=== PATIENT | male | born 1940 | race Caucasian/White ===

== ENCOUNTER → 2019-03-30 | Outpatient (CLI) | payer OTHER | LOC: ULTRA 14:02 | DX: N61.1 Abscess of the breast and nipple (principal) ==

== ENCOUNTER 2019-08-11 18:36 | Inpatient (IN) | payer OTHER ==
[~2019-08-11] VITALS: Ht 180.3 cm; Wt 135.3 kg
--- NOTE | ~2019-08-11 | EMS ---
[address] [address] EMS Patient Care Report Name: NATALY ROBLES Room #: 201-P ADM IN M.R.#: [id number] Admission: 08/11/19 Attend Phys: Ramez Yepez Discharge: Date of : 44 Report #: [id number] THIS REPORT FOR: //name// Report Transmitted: 08/11/2019 21:58 EMS Care Summary [place], [place]/[facility] Incident [id number] @ 08/11/2019 17:54 Incident Location [address] [place] [address] 402 Patient NATALY ROBLES Male, 79 Years 1940 Patient Address [address] [place], [place] [id number] Patient History Congestive Heart Failure (CHF),Diabetes,Hypertension (HTN),Hyperlipidemia,Anxiety,Atrial Fibrillation,Neuropathy,Peripheral Vascular Disease,Hypothyroidism,Hypokalemia,Cellulitis,Insomnia, Patient Allergies No known allergies, Patient Medications Other, Nystatin, Xarelto, Melatonin, Bumetanide, Hydrocodone, Potassium, Lyrica, Coreg, Lipitor, Metformin, Senna, Levothyroxine, Baclofen, Doxycycline, Lisinopril, Disposition Transported [place] Dispatch Reason Sick Person Transported To [facility] Narrative THE PATIENT WAS FOUND SITTING IN A WHEELCHAIR AND BEING ROLLED OUT OF THE BACK DOOR OF THE FACILITY BY STAFF. STAFF STATE THEY FOUND THE PATIENT VERY TIRED [address] [address] EMS Patient Care Report Name: NATALY ROBLES Room #: 201-P [facility] IN .R.#: [id number] Admission: 08/11/19 Attend Phys: Ramez Yang [place] Discharge: Date of : 44 Report #: [id number] AND WEAK ABOUT 30-60 MINUTES AGO AND ARE SENDING HIM OUT FOR EVALUATION. THE PATIENT IS ALERT AND ORIENTED x4 AND COMPLAINS OF LEFT KNEE PAIN FROM A FALL SEVERAL DAYS AGO AND DIZZINESS. THE PATIENT DENIES ANY PAIN, SHORTNESS OF BREATH OR OTHER COMPLAINTS. THE PATIENT WAS FOUND TO BE HYPOTENSIVE AND BRADYCARDIC DURING THE COLLECTION OF VITAL SIGNS. THE MONITOR WAS APPLIED BUT NO RHYTHM COULD BE DISCERNED. IV ACCESS WAS ESTABLISHED AND NS ADMINISTERED. ATROPINE WAS ADMINISTERED. THE PATIENT WAS FOUND TO HAVE A ROOM AIR OXYGEN SATURATION OF 90% WHICH IMPROVED WITH OXYGEN BY CANNULA. NO OTHER CHANGES IN THE PATIENT'S CONDITION DURING TRANSPORT. THE PATIENT WAS MOVED TO BED 6 AT THE [facility] ER AND LEFT WITH THE SIDE RAILS UP AND LOCKED. CARE WAS TRANSFERRED TO THE ER NURSING STAFF. Initial Vitals @18:19P: 34, @18:28P: 26,R: 16,BP: 82/37,Pain: 0/10,GCS: 15,SpO2: 96,Revised Trauma: 11, @18:08P: 40,R: 16,BP: 88/58,Pain: 0/10,GCS: 15,Glucose: 158,CO: 0,SpO2: 90,Revised Trauma: 11, Assessments @18:04MENTAL:Person Oriented,Time Oriented,Place Oriented,Event Oriented,SKIN:Pale,HEENT:Head/Face: No Abnormalities,Eyes: No Abnormalities,Neck/Airway: No Abnormalities,LUNG SOUNDS:General: No Abnormalities,Left Upper: No Abnormalities,Right Upper: No Abnormalities,Left Lower: No Abnormalities,Right Lower: No Abnormalities,ABDOMEN:General: No Abnormalities,Left Upper: No Abnormalities,Right Upper: No Abnormalities,Left Lower: No Abnormalities,Right Lower: No Abnormalities,PELVIS//GI:No Abnormalities,EXTREMITIES:Left Leg: Other,Left Arm: No Abnormalities,Right Arm: No Abnormalities,Right Leg: No Abnormalities,PULSE:Carotid: 1+ Thready,NEURO:No Abnormalities, Impression Dizziness Procedures @18:1912-Lead ECGResponse: Unchanged@18:04ALS AssessmentResponse: Unchanged@18:10Oxygen FlowRate: 3 Device: Nasal Cannula (NC) Response: Improved@18:083-Lead ECGResponse: Unchanged@18:13Saline Lock 8cc (20 ga) Site: Forearm-LeftResponse: UnchangedSucceeded@18:15Normal Saline (.9% NaCl) 500cc () Site: Forearm-LeftResponse: UnchangedSucceeded@18:21Atropine - 1 Milligrams (mg) - Intravenous (IV)Response: Unchanged Timeline 17:52,Call Received 17:52,Dispatch Notified 17:54,Dispatched 17:54,En Route [address] [address] EMS Patient Care Report Name: NATALY ROBLES Room #: 201-P ADM IN M.R.#: [id number] Admission: 08/11/19 Attend Phys: Ramez Yepez Discharge: Date of : 44 Report #: [id number] 17:59,On Scene 18:04,At Patient 18:04,ALS Assessment,Response: Unchanged 18:08,3-Lead ECG,Response: Unchanged 18:08,BP: 88/58 M,PULSE: 40,RR: 16 R,SPO2: 90 Ox,ETCO2: ,B,PAIN: 0,GCS: 15, 18:10,Oxygen FlowRate: 3 Device: Nasal Cannula (NC) Response: Improved 18:13,Saline Lock 8cc 20 ga Site: Forearm-Left,Response: UnchangedSucceeded, 18:15,Normal Saline (.9% NaCl) 500cc Site: Forearm-Left,Response: UnchangedSucceeded, 18:19,12-Lead ECG,Response: Unchanged 18:19,BP: / M,PULSE: 34,RR: R,SPO2: Ox,ETCO2: ,BG: ,PAIN: ,GCS: , 18:21,Atropine - 1 Milligrams (mg) - Intravenous (IV),Response: Unchanged 18:25,Depart Scene 18:28,BP: 82/37 M,PULSE: 26,RR: 16 R,SPO2: 96 Ox,ETCO2: ,BG: ,PAIN: 0,GCS: 15, 18:31,At Destination 19:07,Call Closed Disclaimer v1.1 Copyright 2020 [employer] This EMS Care Summary contains data elements from the applicable legal record (which may be displayed differently). It is designed to provide pertinent information for the following purposes: continuity of care, clinical quality, and state data reporting. The complete legal record is available to ED staff and administrators of the receiving hospital in [employer]'s Patient Tracker. All data is provided "as is."
--- NOTE | ~2019-08-11 | HC ---
[facility] [place] [address] CONSULTATION Name: NATALY ROBLES Room #: 201-P [facility] IN M.R.#: [id number] Admission: 08/11/19 Attend Phys: Ramez Yepez Discharge: Date of : 44 Report #: [id number] THIS REPORT FOR: cc: [facility] - Mary family physician/PCP KINA - Mary family physician/PCP Ken Giron MD ~ CC: [facility] physician/PCP Ramez Yepez ORTHOPEDIC CONSULTATION CHIEF COMPLAINT: Left knee pain. HISTORY OF PRESENT ILLNESS: The patient is a pleasant 79-year-old male was seen today for evaluation of his left knee pain. The patient reports that he fell landing on his knee. He resides at [facility] and has multiple underlying medical comorbidities. PAST MEDICAL HISTORY: Significant for type 1 diabetes, cellulitis, hyperkalemia, peripheral neuropathy, insomnia, hypertension, congestive heart failure, peripheral vascular disease, pneumonia, falls, hyperlipidemia, cardiac arrhythmias, vitamin D deficiency, constipation, and hypothyroidism. PAST SURGICAL HISTORY: Unknown. SOCIAL HISTORY: Resident at [facility]. He is a current smoker of cigars. Alcohol, reports occasional alcohol use. ALLERGIES: No known drug allergies. MEDICATIONS: Please see current MAR. LABORATORY DATA: Reviewed. PHYSICAL EXAMINATION: GENERAL: The patient is alert and able to answer questions to the best of his ability. EXTREMITIES: Examination of the left knee reveals an anterior abrasion. He has a 2+ effusion and pain patches placed along the medial aspect of his knee with range of motions from 20-45 degrees and is otherwise pain limited. His knee is stable to varus and valgus stresses at 30 degrees. No obvious Laura was noted. Patellofemoral crepitus is present. The leg and calf down to the foot is wrapped in a compressive wrapping for his wounds and venous stasis. He is unable to wiggle the toes, but reports diminished sensation. Radiographs reveal advanced tricompartmental knee arthrosis with an effusion. [address] [address] CONSULTATION Name: NATALY ROBLES Room #: 201-P [facility] IN M.R.#: [id number] Admission: 08/11/19 Attend Phys: Ramez Yepez Discharge: Date of : 44 Report #: [id number] IMPRESSION: 1. Left knee pain, status post fall, advanced osteoarthritis. 2. Limited mobility. 3. Multiple medical comorbidities including acute kidney injury, type 1 diabetes and encephalopathy. PLAN: We reviewed treatment options with the patient. He reports that he has had an injection in the past and this provided no significant improvement in his symptoms. We have discussed that he has not a good surgical candidate for total knee arthroplasty especially in this current hospitalization and setting. Anti-inflammatories need to be avoided due to his kidney injury. We discussed ice and/or physical therapy could be considered, he may continue with topical pain patches and oral pain medicine. Unfortunately we have limited options otherwise to help him. He reports he ambulates minimally with a walker and primarily uses a wheelchair. At some point in the future if he decides or if he is interested in an injection, cortisone injection could be considered or possibly viscosupplementation type injections through the office. By: 1222 1548 Ken Giron MD /nt
[2019-08-11 18:37] VITALS: BP 103/51
[2019-08-11 18:59] LABS: ABSOLUTE NEUTROPHILS 7.2 thou/uL (1.4-8.2); BASOPHILS 0.8 % (0.0-2.0); HEMATOCRIT 35.1 % (42.0-52.0); HEMOGLOBIN 11.9 gm/dL (14.0-18.0); LYMPHOCYTES 13.7 % (24.0-44.0); MCH 30.6 pg (26.0-34.0); MCHC 33.8 g/dL (28.0-37.0); MCV 90.7 fL (80.0-100.0); MONOCYTES 10.5 % (1.0-8.0); PLATELET COUNT 146 thou/uL (150-400); RBC 3.87 mil/uL (4.50-6.00); RDW 16.4 % (10.5-14.5); WBC 9.8 thou/uL (4.0-11.0)
[2019-08-11] MEDS ORDERED: BUMEX2 MG PO (19:02)
[2019-08-11] MEDS ORDERED: CARVEDILOL25 MG PO (19:02)
[2019-08-11] MEDS ORDERED: BACLOFEN 10MG T10 MG PO (19:02)
[2019-08-11] MEDS ORDERED: NORCO 5-325 TA1 EAC1 PO (19:03)
[2019-08-11] MEDS ORDERED: LEVOXYL112 MCG PO (19:03)
[2019-08-11] MEDS ORDERED: LIPITOR40 MG PO (19:03)
[2019-08-11] MEDS ORDERED: ZESTRIL40 MG PO (19:04)
[2019-08-11] MEDS ORDERED: LYRICA 75 MG CA75 MG PO (19:04)
[2019-08-11] MEDS ORDERED: MIRALAX17 G1 PO (19:05)
[2019-08-11] MEDS ORDERED: MULTIVITAMINS1 EAC7 PO (19:05)
[2019-08-11] MEDS ORDERED: MELATONIN3 M1 PO (19:05)
[2019-08-11] MEDS ORDERED: METFORMIN HCL500 MG PO (19:05)
[2019-08-11] MEDS ORDERED: SENNA LAXATIVE8.6 MG PO (19:06)
[2019-08-11] MEDS ORDERED: NORVASC5 M1 PO (19:06)
[2019-08-11] MEDS ORDERED: POTASSIUM20 PO (19:06)
[2019-08-11] MEDS ORDERED: METOLAZONE 2.52.5 MG PO (19:07)
[2019-08-11] MEDS ORDERED: XARELTO20 MG PO (19:07)
[2019-08-11 19:12] LABS: APTT 54.4 Seconds (24.5-32.8); INR 1.9; PROTIME 19.8 Seconds (9.3-11.4)
[2019-08-11 19:35] LABS: ANION GAP 11 mmol/L (7-16); BUN 73 mg/dL (7-18); CALCIUM 8.8 mg/dL (8.5-10.1); CHLORIDE 99 mmol/L (98-107); CO2 29 mmol/L (21-32); CREATININE 2.1 mg/dL (0.7-1.3); GLUCOSE 136 mg/dL (74-106); POTASSIUM 3.4 mmol/L (3.5-5.1); SODIUM 139 mmol/L (136-145)
[2019-08-11 19:46] LABS: MAGNESIUM 1.6 mg/dL (1.8-2.4); TROPONIN-I <0.06 ng/mL (<0.06)
[2019-08-11 20:56] LABS: URINE BILIRUBIN NEGATIVE (Negative); URINE BLOOD NEGATIVE (Negative); URINE CLARITY CLEAR; URINE COLOR YELLOW; URINE GLUCOSE-RANDOM* NEGATIVE (Negative); URINE KETONES NEGATIVE (Negative); URINE LEUKOCYTES-REFLEX NEGATIVE (Negative); URINE NITRITE-REFLEX NEGATIVE (Negative); URINE PROTEIN (DIPSTICK) NEGATIVE (Negative); URINE UROBILINOGEN 0.2 E.U./dl (0.2-1.0)
[2019-08-11 21:14] VITALS: BP 90/32
[2019-08-11 22:00] VITALS: BP 117/56
[2019-08-12] VITALS (8 sets, daily range): BP systolic 95–142; BP diastolic 53–88
--- NOTE | 2019-08-12 02:05 | NUR ---
PT ARRIVED AT THE UNIT AROUND 2134, PT IS AWAKE, A&O, MAKES NEEDS KNOWN, AFIB/BBB ON THE MONITOR, HR STABLE AT 72, ADMISSION ASSESSMENT CHARTED, VSS, C/O PAIN IN THE BLE, TYL GIVEN, PT SLEEPING AT THIS TIME, NO DISTRESS NOTED, WILL CONTINUE TO MONITOR
[2019-08-12] MEDS ORDERED: NYSTATIN 100,0015 G1 TOP (03:30)
[2019-08-12 05:18] LABS: HEMATOCRIT 31.6 % (42.0-52.0); HEMOGLOBIN 10.8 gm/dL (14.0-18.0); MCH 30.9 pg (26.0-34.0); MCHC 34.1 g/dL (28.0-37.0); MCV 90.7 fL (80.0-100.0); RBC 3.48 mil/uL (4.50-6.00); RDW 16.4 % (10.5-14.5)
[2019-08-12 05:34] LABS: ANION GAP 7 mmol/L (7-16); BUN 62 mg/dL (7-18); CALCIUM 8.3 mg/dL (8.5-10.1); CHLORIDE 103 mmol/L (98-107); CO2 31 mmol/L (21-32); CREATININE 1.5 mg/dL (0.7-1.3); GLUCOSE 127 mg/dL (74-106); MAGNESIUM 2.1 mg/dL (1.8-2.4); SODIUM 141 mmol/L (136-145); TROPONIN-I <0.06 ng/mL (<0.06)
[2019-08-12 05:36] LABS: POTASSIUM 2.8 mmol/L (3.5-5.1)
--- NOTE | 2019-08-12 07:47 | NUR ---
PT REMAINED STABLE THROUGH THE NIGHT, EPISODES OF BRADYCARDIA, AFIB ON THE MONITOR WITH BBB, PASSED ON REPORT
--- NOTE | 2019-08-12 08:32 | EKG ---
[facility] [place] [address] ELECTROCARDIOGRAM REPORT Name: NATALY ROBLES Room #: 201-P ADM IN M.R.#: [id number] Admission: 08/11/19 Attend Phys: Ramez Yepez Discharge: Date of : 44 Report #: [id number] THIS REPORT FOR: cc: KINA - No family physician/PCP KINA - No family physician/PCP Pete Ellsworth MD [facility] THIS REPORT FOR: //name// [facility] ED Test Date: 2019-08-11 Test Time: 18:44:59 Pat Name: NATALY ROBLES Department: Room: [facility] Gender: M [place]: [place] : 1940 Requested By: Arjun Stewart Order Number: [id number] MD: Pete Ellsworth Measurements Intervals [place] Rate: 85 P: TX: QRS: -36 QRSD: 155 T: -42 QT: 426 QTc: 507 Interpretive Statements Atrial fibrillation Ventricular premature complex Right bundle branch block Inferior infarct, old No previous ECG available for comparison Electronically Signed On 08-12-2019 8:30:36 CDT by Pete Ellsworth [email or web address] <ELECTRONICALLY SIGNED> By: Pete Ellsworth MD, FACC 08/12/19 0830 1844 1844 Pete Ellsworth MD, [facility] /EPI
--- NOTE | 2019-08-12 11:02 | NUR ---
WOUND CONSULT; BILATERAL LOWER EXTREMITY WITH ACUTE CELLULITIS PER DR PRESSLEY. WARM TO TOUCH, ERYTHEMIA. THE LEFT IS MORE PAINFUL DUE TO KNEE ISSUES. DR MONTALVO IS ON THE CASE NOW SO I WILL SIGN OFF. RECOMMENDATIONS; 1-XEROFORM,ABD, KERLIX, JOE WRAP BILATERALLY DISCUSSED WITH RN
--- NOTE | 2019-08-12 11:31 | NUR ---
Received awake on bed. Due medications given as prescribed, able to swallow meds w/o difficulty. On O2 at 2lpm via nasal cannula, saturating at 92%. A+O3-4. On heart monitoring- strips attached to chart; Afib BBB, bradycardic; no complaints of chest pain, heaviness or crushing sensation. On carb controlled diet- modified to mechanically alterred chopped since pt does not have dentures- tolerating well; no nausea, no vomiting and no abdominal pain noted. Onblood sugar monitoring- taken and recorded; sliding scale insulin ordered. Continent of bowel and bladder- assisted in using urinal- output measured and recorded accordingly. With bilateral lower extremity cellulitis- wound care consult made; a/w wounds. Pt seen by Wound nurse Spencer- photo has been taken by wound nurse; dressing changed. With NS at 100cc/hr, infusing well at L FA; ongoing IV KCL correction 2nd bag ongoing as well. With SL at R AC- C/D/I. Falls bundle in place. With consult to Dr Hurley- called thru answering service, Dr Zuleta called back and information relayed to him. Pt seen by Dr Syed- pt for Echo and EKG; Echo done at bedside today. With consult to Dr Goldman, Dr Ansari and Dr Reece-physicians informed thru answering service. Complained of pain, no PRN pain meds prescribed- Dr Townsend informed; prescription obtained- medication given as prescribed. Assisted in ADLs. Falls bundle in place. Pt's sister Amarilis updated re: his status, permission obtained. To continue monitoring patient.
--- NOTE | 2019-08-12 12:10 | 2DMMODE ---
[facility] [address] [email or web address] [address] 2 D/M-MODE ECHOCARDIOGRAM Name: NATALY ROBLES Room #: 201-P ADM IN M.R.#: [id number] Admission: 08/11/19 Attend Phys: Ramez Yepez Discharge: Date of : 44 Report #: [id number] THIS REPORT FOR: cc: FAM - No family physician/PCP FAM - No family physician/PCP Pete Ellsworth MD [facility] ~ APPROVED REPORT Study performed: 08/12/2019 10:49:47 EXAM: Comprehensive 2D, Doppler, and color-flow Echocardiogram Patient Location: Bedside Room #: 201 Status: routine BSA: 2.43 HR: 57 bpm BP: 116/53 mmHg Rhythm: Atrial Fibrillation Other Information Study Quality: Adequate/poorly tolerated exam; not all measurements taken. Technically limited study due to morbid obesity, no mobility, intolerance of exam. Indications Atrial Fibrillation Hx: CHF, Afib, DM, HTN, HLP, DM. 2D Dimensions IVSd: 12.46 (7-11mm) LVOT Diam: 22.22 (18-24mm) LVDd: 47.00 mm PWd: 10.00 (7-11mm) Ascending Ao: 43.00 (22-36mm) LVDs: 36.53 (25-40mm) Aortic Root: 39.00 mm Aortic Valve AoV Peak Lele.: 1.97 m/s AO Peak Gr.: 15.45 mmHg LVOT Max P.97 mmHg AO Mean Gr.: 9.26 mmHg AO V2 Mean: 1.46 m/s LVOT Max V: 0.86 m/s AO V2 VTI: 39.71 cm CONCHIS Vmax: 1.69 cm2 [facility] [address] [place] [address] 2 D/M-MODE ECHOCARDIOGRAM Name: TRAVISNATALY Room #: 201-P [facility] IN [facility]#: [id number] Admission: 08/11/19 Attend Phys: Ramez Yang Mar Discharge: Date of : 44 Report #: [id number] Mitral Valve MV Decel. Time: 249.42 ms MV E Max Lele.: 1.32 m/s Pulmonary Valve PV Peak Lele.: 0.82 m/s PV Peak Gr.: 2.68 mmHg Tricuspid Valve TR Peak Lele.: 2.17 m/s RAP Estimate: 10.00 mmHg TR Peak Gr.: 19.00 mmHg PA Pressure: 29.00 mmHg Left Ventricle The left ventricle is normal size. There is normal LV segmental wall motion. Mild septal hypertrophy is present. Left ventricular systolic function is normal. LVEF is 55%. This study is not technically sufficient to allow evaluation of the LV diastolic function due to atrial fibrillation. Right Ventricle Right ventricle is not well visualized. The right ventricular systolic function is normal. Atria Left atrium is dilated. Right atrium is not well visualized. Aortic Valve Aortic valve is calcified, mildly stenotic. Trace aortic regurgitation. Calculated aortic valve area is 1.9 cm2 with maximum pressure gradient of 12 mmHg and mean pressure gradient of 6 mmHg. Mitral Valve Mild mitral annular calcification. There is no mitral valve regurgitation noted. No evidence of mitral valve stenosis. Tricuspid Valve The tricuspid valve is normal in structure. Mild tricuspid regurgitation. Estimated PAP is 30mmHg. Pulmonic Valve Pulmonic valve is not well visualized. Trace pulmonic regurgitation. Great Vessels Aortic root is dilated 3.9. 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 IVC [facility] [address] [place] [address] 2 D/M-MODE ECHOCARDIOGRAM Name: NATALY ROBLES Room #: 201-P ADM IN M.R.#: [id number] Admission: 08/11/19 Attend Phys: Ramez Freeman Discharge: Date of : 44 Report #: [id number] is dilated and collapses <50% with inspiration. Pericardium There is no pericardial effusion. <Conclusion> Left ventricular systolic function is normal. There is normal LV segmental wall motion. LVEF is 55%. Left atrium is dilated. Aortic valve is calcified, very mildly stenotic, mildly insufficient Calculated aortic valve area is 1.9 cm2 with maximum pressure gradient of 12 mmHg and mean pressure gradient of 6 mmHg. Mild mitral annular calcification. No mitral valve regurgitation noted. Mild tricuspid regurgitation. Estimated pulmonary artery pressure of 30mmHg. 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 There is no pericardial effusion. <ELECTRONICALLY SIGNED> By: Pete Ellsworth MD, FACC 08/12/191207 07 07 Pete Ellsworth MD, FAC /INF
[2019-08-12 14:26] LABS: CREATININE 1.3 mg/dL (0.7-1.3); MAGNESIUM 1.7 mg/dL (1.8-2.4); POTASSIUM 3.2 mmol/L (3.5-5.1)
--- NOTE | 2019-08-12 16:42 | NUR ---
Patient admits from [facility] with AMS and cellulitis. Attempted to call patient in room but not avail. Sp with sister who reports she is main contact for patient. She reports plan to return to [facility] once stable. Dtr reports wound on bottocks may need cushion for seating. Sp with RN gave cell number to RN so can have communication through phone. cell [phone]
[2019-08-13 00:07] LABS: GLYCOHEMOGLOBIN (HGB A1C) 7.3 % (4.8-5.6)
[2019-08-13 03:37] VITALS: BP 118/60
--- NOTE | 2019-08-13 05:15 | NUR ---
ASSUMED PT CARE AT 1900, PT IS MORE AWAKE, A&OX3, PLEASANT, MAKES NEEDS KNOWN, AFIB/BBB ON THE MONITOR, C/O PAIN ON BLE, MEDICATIONS GIVEN PRN ORDERED WITH PARTIAL RELIEF, REFUSED POSITION CHANGE DUE TO PAIN, DENIES CHEST PAIN OR SOB,RESTING, NO DISTRESS NOTED, WILL CONTINUE TO MONITOR
[2019-08-13 06:26] LABS: HEMATOCRIT 31.5 % (42.0-52.0); HEMOGLOBIN 10.8 gm/dL (14.0-18.0); MCH 30.8 pg (26.0-34.0); MCHC 34.1 g/dL (28.0-37.0); MCV 90.1 fL (80.0-100.0); RBC 3.5 mil/uL (4.50-6.00); WBC 8.5 thou/uL (4.0-11.0)
[2019-08-13 06:34] LABS: CALCIUM 8.4 mg/dL (8.5-10.1); MAGNESIUM 1.7 mg/dL (1.8-2.4)
[2019-08-13 08:00] VITALS: BP 180/86
--- NOTE | 2019-08-13 09:14 | EKG ---
[facility] [place] [address] ELECTROCARDIOGRAM REPORT Name: NATALY ROBLES Room #: 201-P ADM IN M.R.#: [id number] Admission: 08/11/19 Attend Phys: Andrea Townsend MD Discharge: Date of : 44 Report #: [id number] THIS REPORT FOR: cc: KINA - No family physician/PCP KINA - No family physician/PCP Pete Ellsworth MD [facility] THIS REPORT FOR: //name// [facility] Test Date: 2019-08-13 Test Time: 07:04:08 Pat Name: NATALY ROBLES Department: Room: 201 P Gender: M Touch Up Painter Hand: Bolivar MONAE : 1940 Requested By: Pete Ellsworth Order Number: [id number] MD: Pete Ellsworth Measurements Intervals [place] Rate: 81 P: ME: QRS: -36 QRSD: 150 T: -29 QT: 436 QTc: 506 Interpretive Statements Atrial fibrillation Right bundle branch block Inferior infarct, old Compared to ECG 08/11/2019 18:44:59 No significant change was found Electronically Signed On 08-13-2019 9:12:51 CDT by Pete Ellsworth [email or web address] <ELECTRONICALLY SIGNED> By: Pete Ellsworth MD, [facility] 08/13/19 0912 0704 0704 Pete Ellsworth MD, [facility] /EPI
--- NOTE | 2019-08-13 10:28 | NUR ---
FAXED CLINICAL UPDATE TO [facility] SPOKE WITH CHRIS IN ADM SHE RECEIVED UPDATE AND STATED THAT PT WILL NEED COVID TEST PRIOR TO RETURNING TO FACILITY.
--- NOTE | 2019-08-13 10:29 | HC ---
[facility] [place] [address] CONSULTATION Name: NATALY ROBLES Room #: 201-P [facility] IN M.R.#: [id number] Admission: 08/11/19 Attend Phys: Andrea Townsend MD Discharge: Date of : 42 Report #: [id number] THIS REPORT FOR: cc: KINA Hernandez family physician/PCP KINA Hernandez family physician/PCP Yvette Grant MD ~ CC: [facility] physician/PCP Ramez Yepez DATE OF SERVICE: 08/12/2019 ENDOCRINE CONSULTATION NOTE CONSULTING PHYSICIAN: Dr. Townsend. REASON FOR CONSULTATION: Hypothyroidism, type 2 diabetes mellitus. HISTORY OF PRESENT ILLNESS: This is a 79-year-old male patient whose medical background is significant for multiple issues including type 2 diabetes mellitus, hypothyroidism, congestive heart failure, hypertension in addition to other medical difficulties. The patient presented to [facility] from [facility] with complaints of dizziness and lightheadedness in the context of hypotension and bradycardia. On arrival, he was found to have heart rate in the 30s to 40s as well as a systolic blood pressure of 80s. The patient was admitted for further care and monitoring. When questioned about his history of hypothyroidism, the patient indicated that he is not aware of any thyroid difficulties. However, his outpatient medical records indicate that he has been on chronic levothyroxine therapy at a current dose of 112 mcg daily. Again, the patient has not had any knowledge of this and is not aware of the specifics of medicines he takes at his snf. He explains that he has been a diabetic for many years and that he has never needed insulin. His care records from his snf showed that he is maintained on metformin 500 mg b.i.d. He indicates that his blood glucose values on monitoring at home, often range in the low to mid 100 mg/dL range. He does not have issues with hypoglycemia. He is not aware of difficulties pertaining to diabetic retinopathy or nephropathy, but does indicate that he has numbness and tingling affecting both hands and feet. The patient is not aware of coronary artery disease or strokes in the past. Also, the patient is hypertensive and is maintained on carvedilol 25 mg b.i.d., lisinopril 40 mg daily, amlodipine 5 mg daily and Zaroxolyn 2.5 mg daily. The patient is hyperlipidemic and is maintained on atorvastatin 40 mg [address] [address] CONSULTATION Name: NATALY ROBLES Room #: 201-P [facility] IN [facility]#: [id number] Admission: 08/11/19 Attend Phys: Andrea Townsend MD Discharge: Date of : 42 Report #: [id number] REVIEW OF SYSTEMS: CONSTITUTIONAL: Fatigue, tiredness, but no significant body weight changes, fever or chills. HEENT: Negative for sore throat, sinus pain, ear drainage. PULMONARY: Shortness of breath and intermittent cough, but not hemoptysis. GASTROINTESTINAL: Abdominal distention, abdominal discomfort, occasional nausea, but no vomiting. NEUROLOGY: Lightheadedness, dizziness, but not seizure activity or severe frequent headaches. PSYCHIATRIC: Negative for delusions, hallucinations, significant anxiety or depression issues. Otherwise, his review of systems noncontributory other than those mentioned in HPI. PAST MEDICAL HISTORY: 1. Type 2 diabetes mellitus. 2. Hypothyroidism. 3. Hyperlipidemia. 4. Hypertension. 5. Obesity. 6. CHF. 7. Peripheral vascular disease. 8. History of hypokalemia. 9. History of cardiac arrhythmias. OUTPATIENT MEDICATIONS: Include baclofen 10 mg t.i.d., carvedilol 25 mg b.i.d., Bumex 2 mg daily, [place] 5/325 mg 1 tab q. 4 hours p.r.n., levothyroxine 112 mcg daily, atorvastatin 40 mg daily, lisinopril 40 mg daily, Lyrica 75 mg b.i.d., metformin 500 mg b.i.d., MiraLax daily, multivitamin daily, amlodipine 5 mg daily, KCl 20 mEq daily, Xarelto 20 mg daily, metolazone 2.5 mg daily. ALLERGIES: No known drug allergies. FAMILY HISTORY: Noncontributory. SOCIAL HISTORY: The patient denies the use of alcohol or illicit drugs. He smokes cigars daily. PHYSICAL EXAMINATION: GENERAL: Pleasant male patient who is not in apparent pain or distress. VITAL SIGNS: Blood pressure is 116/53 mmHg, respiration rate is 16 per minute, heart rate is 53 beats per minute, temperature 36.6 Celsius degrees. CONSTITUTIONAL: The patient is sitting upright in bed, appears relatively comfortable, not in pain or distress. HEENT: Anicteric sclerae. Intact extraocular motions. [facility] [address] [place] [address] CONSULTATION Name: NATALY ROBLES Room #: 201-P [facility] IN M.R.#: [id number] Admission: 08/11/19 Attend Phys: Andrea Townsend MD Discharge: Date of : 42 Report #: [id number] NECK: Supple, without carotid bruits. No thyromegaly. CHEST: Noted for moderate air entry with scattered rales. No wheezes. HEART: Regular rate and rhythm, bradycardic. No murmurs. ABDOMEN: Distended, but soft, lax. No guarding. Active bowel sounds. EXTREMITIES: Lower extremity exam both lower extremities wrapped up in compression stockings. NEUROLOGIC: Awake, alert, oriented to time, place and person. The rest of his examination is nonfocal other than for peripheral sensory deficits. PSYCHIATRIC: Pleasant, interactive. Normal mood and affect. LABORATORY DATA: Blood glucose on arrival was 120, sodium 141, potassium 2.8, chloride 103, CO2 of 31, anion gap 7, BUN 62, creatinine 1.5, glucose 127, calcium 8.3, magnesium 2.1, uric acid 14.7, EGFR 45. Lactic acid 1.5. Troponin negative. Free T4 of 1.1. INR 1.9. White blood count 8.0, hemoglobin 10.8, hematocrit 31.6, platelets 132. TSH 10.379. Hemoglobin A1c was ordered and is pending. ASSESSMENT AND PLAN: 1. Type 2 diabetes mellitus: The patient reports an overall controlled outlook of type 2 diabetes mellitus as per his reported blood glucose values. We only have one blood glucose value since his admission and a hemoglobin A1c is pending, which will help understand more about his overall level of control. In the immediate setting, I would like to add Tradjenta 5 mg daily, so as to support him with a medication that is compatible with advanced kidney disease, although his renal insufficiency is at best at stage 3A. Additionally, he will be supported with Humalog supplemental scale, low intensity. Blood glucose monitoring will commence a.c. and at bedtime. Further therapeutic changes will be made according to his blood glucose values going forward. 2. Hypothyroidism. The patient has hypothyroidism judging by the fact that he is maintained on levothyroxine 112 mcg daily at his snf. His thyroid function indices on presentation indicate an adequate replacement on this present dose. I believe that it would be prudent to attempt to optimize his control given his presentation with CHF and bradycardia. An ideal TSH would be in the range of 1-3. I will raise his levothyroxine dosage to 137 mcg daily towards this goal. He will need to maintain this dosage until his next followup in 2 months from now. 3. Hypertension. The patient's level of blood pressure control is adequate, he is to continue with the current regimen and further adjustments would be as per the main hospital team and Cardiology team. 5. Hyperlipidemia. The patient is currently on atorvastatin therapy and tolerates it well, he is to continue with the same. I have reviewed clinical care notes, laboratory data and other pertinent clinical information pertaining to the patient's care for over 35 minutes aside from my [id number] time with him. [address] [address] CONSULTATION Name: TRAVISNATALY Room #: 201-P [facility] IN M.R.#: [id number] Admission: 08/11/19 Attend Phys: Andrea Townsend MD Discharge: Date of : 42 Report #: [id number] I certainly appreciate this consultation by Dr. Townsend. <ELECTRONICALLY SIGNED> By: Yvette Grant MD 08/13/19 1029 [id number] Yvette Grant MD /nt
[2019-08-13 11:50] VITALS: BP 125/59
--- NOTE | 2019-08-13 15:54 | NUR ---
Covid test requested per [facility] for any of their returning patients. The attending was notified. Wound care consult pending. Possible dc back to [place] soon.
[2019-08-13 16:15] VITALS: BP 146/79
--- NOTE | 2019-08-13 16:33 | NUR ---
PT CARE ASSUMED AT 0700. ASSESSMENTS CHARTED. MEDICATIONS CHARTED. WOUND CARE PERFORMED, WAITED 1 HOUR FOR WOUND DOCTOR PER WOUND RN, DIDN'T SHOW. PT STATED THAT HE NEEDED TO UTILIZE BED [place], FAILED. REQUIRED 4 STAFF TO MOVE DUE TO LEG PAIN. LIFT OUTSIDE OF ROOM. COVID-19 TEST PERFORMED FOR PT'S HOME FACILITY.
[2019-08-13 17:00] VITALS: BP 146/79
--- NOTE | 2019-08-13 18:27 | HC ---
[facility] [place] [address] CONSULTATION Name: NATALY ROBLES Room #: 201-P ADM IN M.R.#: [id number] Admission: 08/11/19 Attend Phys: Andrea Townsend MD Discharge: Date of : 42 Report #: [id number] THIS REPORT FOR: cc: KINA - No family physician/PCP KINA - No family physician/PCP Silverio Goldman MD ~ CC: [facility] physician/PCP Ramez Yepez DATE OF SERVICE: 08/12/2019 INFECTIOUS DISEASE CONSULTATION REASON FOR CONSULTATION: I was asked to evaluate concerning sepsis and bilateral lower extremity cellulitis. HISTORY OF PRESENT ILLNESS: A 79-year-old presents in transfer from custodial unit with bradycardiac, hypotension and encephalopathy. Heart rates were down in the 30s. In addition, he was noted to have peripheral edema, venous stasis ulcers and bilateral lower extremity cellulitis. No gross aspiration. No cough or sputum production. Denies any nausea, vomiting or diarrhea. After fluid resuscitation and control of his heart rate, his encephalopathy has improved. He was empirically placed on Zosyn. Do not have any recent cultures of his lower extremity wounds. He has been followed by wound care service. He also has diabetes which now is being managed appropriately. Over the last 24 hours, the patient has shown improvement. Denies any chest pain, palpitations. His lower extremity wounds have been dressed and now is in JOE wraps for compression. No nausea, vomiting or diarrhea. No dysuria. A 14-point review of system was negative other than what has been described above. PAST MEDICAL HISTORY: Diabetes, lower extremity venous stasis disease, chronic lymphedema, hypokalemia, peripheral neuropathy, insomnia, hypertension, congestive heart failure, peripheral vascular disease, pneumonia, hyperlipidemia, cardiac dysrhythmia, vitamin D deficiency, constipation, hypothyroidism. FAMILY HISTORY: Without evidence of tuberculosis. SOCIAL HISTORY: Lives [facility]. No current tobacco or alcohol use. ALLERGIES: None known. [facility] [address] [place] [address] CONSULTATION Name: NATALY ROBLES Room #: 201-P [facility] IN M.R.#: [id number] Admission: 08/11/19 Attend Phys: Andrea Townsend MD Discharge: Date of : 42 Report #: [id number] MEDICATIONS: As noted on his MAR that were reviewed, now on Zosyn. PHYSICAL EXAMINATION: VITAL SIGNS: Afebrile and hemodynamically stable. Heart rate was in the 50s. GENERAL: He was alert and cooperative. Moderately obese. EXTREMITIES: 2+ peripheral edema in the lower extremities. JOE wraps in place from toes to proximal calf. EYES: Without scleral icterus. MOUTH: Without mucositis. NECK: Supple, with no thyromegaly or mass. LUNGS: Clear to auscultation. HEART: Regular, without murmur, gallop or rub. ABDOMEN: Soft, nontender, no hepatosplenomegaly or mass. GENITORECTAL: Not performed. BACK: Nontender with no spinal tenderness or CVA tenderness. EXTREMITIES: Had imaging done last evening. Pictures were reviewed. He had decreased sensation to touch in his toes. Capillary refill was within normal limits in his toes. NEUROLOGIC: Cranial nerves were intact. LABORATORY: Reviewed. MICROBIOLOGY: Reviewed. Chest x-ray reviewed. IMPRESSION: 1. The patient presents with sepsis, noting hypotension, symptomatic bradycardia, acute kidney injury, delirium, associated cellulitis of lower extremities with venous stasis ulcers. 2. Diabetes. 3. Acute kidney injury. 4. History of hypertension. 5. History of hypothyroidism. RECOMMENDATIONS: We will continue IV antibiotic therapy. Cardiology has addressed his bradycardia. Maintain appropriate fluid volume and follow kidney function. Treat lower extremities with leg elevation, compression and localized wound care. Continue antibiotic coverage with ceftriaxone. We will make adjustments following initial 48 hours of treatment. <ELECTRONICALLY SIGNED> By: Silverio Goldman MD 08/13/19 1827 [id number] Silverio Goldman MD /nt
[2019-08-13 19:26] VITALS: BP 134/90
[2019-08-14] VITALS (8 sets, daily range): BP systolic 106–134; BP diastolic 48–90
[2019-08-14 04:05] LABS: HEMATOCRIT 32.8 % (42.0-52.0); MCH 30.5 pg (26.0-34.0); MCHC 33.7 g/dL (28.0-37.0); MCV 90.5 fL (80.0-100.0); RBC 3.62 mil/uL (4.50-6.00); WBC 10.1 thou/uL (4.0-11.0)
[2019-08-14 04:14] LABS: CALCIUM 8.5 mg/dL (8.5-10.1); CREATININE 0.9 mg/dL (0.7-1.3); POTASSIUM 3.3 mmol/L (3.5-5.1)
--- NOTE | 2019-08-14 04:19 | NUR ---
ASSUMED PT CARE AT 1900, PT IS AWAKE, ALERT AND ORIENTED, MAKES NEEDS KNOWN, ASSESSMENTS CHARTED, C/O PAIN ON THE LOWER EXTREMITIES, PAIN MEDICATION GIVEN WITH PARTIAL RELIEF, DENIES CHEST PAIN AND SOB, VSS, C/O NAUSEA AT THE BEGINNING OF SHIFT, MEDICATED PRN, NO FURTHER COMPLAINS, MEDICATIONS ADMINISTERED ORDERED, PT IS RESTING AND WATCHING TV AT THIS TIME, WILL CONTINUE TO MONITOR
--- NOTE | 2019-08-14 16:16 | NUR ---
PT CARE ASSUMED AT 0700. ASSESSMENTS CHARTED. MEDICATION CHARTED. PT COMPLAINS OF CONSTIPATION; HAS ATTEMPTED BM 4 TIMES. IT IS DIFFICULT FOR HIM DUE TO EXTREME LEFT KNEE PAIN; MAKES IT DIFFICULT TO PLACE BEDPAN BECAUSE HE HAS DIFFICULTY TURNING.
--- NOTE | 2019-08-14 17:41 | NUR ---
Clinical updated faxed to [facility] with request for skilled therapy there including his neg covid test results. Pt switching to po atb per ID. Pt still painful and max a with therapy. [facility] Pt's sister called and update provided. She requested to speak with the attending regarding concerns about him returning to the correction "too soon". The attending has spoken with her this afternoon. KUB pending as the pt has not had a bm. [facility] is working on insurance auth for SNF stay but likely will not have auth in place til Saturday. No weekend dc anticipated.
--- NOTE | 2019-08-14 18:35 | HC ---
[facility] [place] [address] CONSULTATION Name: NATALY ROBLES Room #: 201-P ADM IN M.R.#: [id number] Admission: 08/11/19 Attend Phys: Andrea Townsend MD Discharge: Date of : 42 Report #: [id number] THIS REPORT FOR: cc: KINA - No family physician/PCP KINA - No family physician/PCP Wong Ansari MD ~ CC: [facility] physician/PCP Ramez Yepez DATE OF SERVICE: 08/12/2019 CHIEF COMPLAINT: Cellulitis, bilateral lower extremities. HISTORY OF PRESENT ILLNESS: This is a 79-year-old male patient who was admitted to the hospital from [facility]. He had reported bradycardia and hypertension with heart rates in the 30s and systolic blood pressure in the 180s. He was noted to have cellulitis of his lower extremities and I have been asked to see him with regard to wound care. 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 The patient has an abrasion to his left knee. He is unclear as to its duration or origin. PAST MEDICAL HISTORY: Positive for type 1 diabetes mellitus per his records, history of lower extremity cellulitis, hypokalemia, peripheral neuropathy, hypertension, congestive heart failure, peripheral vascular disease, pneumonia, hyperlipidemia, vitamin D deficiency, constipation, hypothyroidism. ALLERGIES: No known drug allergies. MEDICATIONS: Baclofen, carvedilol, Bumex, [place], Levoxyl, calcium, Zestril, Lyrica, Glucophage, melatonin, MiraLax, multivitamin, Norvasc, K-Dur, Xarelto, and Zaroxolyn. SOCIAL HISTORY: The patient admits to alcohol on special occasions and occasional cigar smoking. FAMILY HISTORY: Noncontributory. REVIEW OF SYSTEMS: CONSTITUTIONAL: The patient denies fever, chills or weight loss. NEUROLOGICAL: The patient denies focal weakness, numbness or tingling. EYES: The patient denies visual changes, redness, or drainage. ENT: The patient denies earache, nasal drainage, sore throat. CARDIOVASCULAR: The patient denies chest pain, palpitations or diaphoresis. PULMONARY: The patient denies cough or shortness of breath. GASTROINTESTINAL: The patient denies nausea, vomiting, diarrhea or abdominal [facility] [address] [place] [address] CONSULTATION Name: NATALY ROBLES Room #: 201-P [facility] IN .R.#: [id number] Admission: 08/11/19 Attend Phys: Andrea Townsend MD Discharge: Date of : 42 Report #: [id number] pain. ORTHOPEDIC: The patient does complain of pain involving his left knee as well as lower extremity swelling. Other systems in a 14-point review of systems are negative. PHYSICAL EXAMINATION: VITAL SIGNS: At this time include temperature 97.8, pulse 53, respiratory rate 16, blood pressure 116/53. GENERAL: This is a chronically ill-appearing male patient who appears to be in minimal distress. HEENT: Head normocephalic. Nose and throat are clear. NECK: Supple. LUNGS: Diminished. HEART: Regular rate. ABDOMEN: Bowel sounds present. EXTREMITIES: Examination of the lower extremities demonstrates 2+ edema bilaterally. There is an abrasion to the left prepatellar region, which is relatively clean, granulating superficial. He has bilateral venous dermatitis changes of the lower extremities with some scattered ulcerations to the right pretibial region. A small amount of odor and moderate redness. NEUROLOGIC: The patient is alert and oriented, moving all 4 extremities. LABORATORY DATA: White blood cell count 8000 with a hemoglobin of 10.8. Sodium 141, potassium 2.8, chloride 103, CO2 of 31, BUN 62, creatinine 1.5, glucose 127, calcium is 8.3. CLINICAL IMPRESSION: 1. Abrasions to the left knee. 2. Cellulitis, bilateral lower extremities. 3. Venous ulceration to the right lower leg. RECOMMENDATIONS: At this point in time, we will recommend a culture and sensitivity from the right pretibial region. Recommend Xeroform gauze and bordered foam to the left knee, AmLactin lotion, Xeroform, ABD, Kerlix and gently apply JOE to bilateral lower extremities. We will check arterial Dopplers before significant compression is introduced, recommend elevation for control of edema at present. The patient is agreeable with the current plan. I do appreciate being asked to see him in consultation. <ELECTRONICALLY SIGNED> By: Wong Ansari MD 08/14/19 1835 [id number] Wong Ansari MD /nt
[2019-08-15 04:01] LABS: HEMATOCRIT 33.1 % (42.0-52.0); MCH 30.2 pg (26.0-34.0); MCHC 33.3 g/dL (28.0-37.0); MCV 90.7 fL (80.0-100.0); RBC 3.65 mil/uL (4.50-6.00); WBC 12.2 thou/uL (4.0-11.0)
--- NOTE | 2019-08-15 04:57 | NUR ---
ASSUMED CARE OF PATIENT AT 1900. PATIENT GIVEN ONE TIME DOSE OF LACTULOSE FOR CONSTIPATION. LACTULOSE EFFECTIVE AND PATIENT REPORTS RELIEF. PATIENT CONTINUES TO C/O PAIN IN LEFT KNEE. WINCES WHEN LOWER EXTREMITIES ARE TOUCHED OR MOVED. ADMINISTERED PRN NORCO X2 THROUGHOUT NOC. PATIENT REPORTS PAIN MEDICATION SOMEWHAT EFFECTIVE. LUNG SOUNDS CLEAR BUT DIMINISHED. PATIENT REPORTS NO SOA AND IS ON ROOM AIR MAINTAINING ACCEPTABLE OXYGEN SATURATION. PATIENT IS PROGRESSING SLOWLY TOWARDS GOALS.
[2019-08-15 05:22] LABS: CALCIUM 8.8 mg/dL (8.5-10.1); MAGNESIUM 1.7 mg/dL (1.8-2.4); POTASSIUM 3.8 mmol/L (3.5-5.1)
[2019-08-15 06:02] VITALS: BP 125/70
[2019-08-15 07:20] VITALS: BP 129/69
[2019-08-15 10:49] VITALS: BP 125/63
--- NOTE | 2019-08-15 10:55 | NUR ---
Received awake on bed. Due medications given as prescribed, able to swallow meds w/o difficulty. On room air. Vital signs stable. A+Ox4. On telemetry- strips attached to chart; no complaints of chest pain, crushing or heaviness sensation. On mechanically altered chopped diet- tolerating well; encouraged and assisted in eating and drinking; no nausea, no vomiting and no abdominal pain noted. On blood sugar monitoring- taken and recorded accordingly; with sliding scale insulin prescribed. With externaly gordon in place- output measured and recorded accordingly. With SL at R FA nad L FA. With bilateral leg dressings in place- C/D/I; for dressing change today; with skin tear at L knee. Assisted in ADLs. Pt using tomy lift to use bedside commode. Complained of pain, due PRN pain medication given as presribed. Patient to be turned on his sides, may refuse at times. Falls bundle in place. To continue monitoring patient.
[2019-08-15 16:00] VITALS: BP 125/63
[2019-08-15 19:31] VITALS: BP 114/46
[2019-08-16 04:00] VITALS: BP 154/89
--- NOTE | 2019-08-16 05:24 | NUR ---
ASSUMED CARE OF PATIENT AT 1900. PATIENT CONTINUES PROGRESSING SLOWLY TOWARDS GOALS. PATIENT REPORTS LESS PAIN THIS SHIFT AND STATES THAT PAIN INCREASES WITH MOVEMENT AND TOLERABLE AT REST. SPLINTING LEFT KNEE WITH PILLOW HELPS MINIMIZE PAIN WHEN MOVING AND TURNING. PAIN RELIEF REPORTED BY PATIENT AFTER PRN NORCO ADMINISTRATION ORDERED. PATIENT CONTINUES ON ROOM AIR WITH OXYGEN SATS IN LOW 90S. PATIENT AFEBRILE THROUGHOUT SHIFT. DRESSINS TO BLE REMAIN CLEAN,DRY, AND INTACT.
[2019-08-16 05:47] LABS: HEMATOCRIT 32.9 % (42.0-52.0); MCH 30.4 pg (26.0-34.0); MCHC 33.3 g/dL (28.0-37.0); MCV 91.3 fL (80.0-100.0); RBC 3.6 mil/uL (4.50-6.00); WBC 10.5 thou/uL (4.0-11.0)
[2019-08-16 06:17] LABS: CALCIUM 8.6 mg/dL (8.5-10.1); CREATININE 0.9 mg/dL (0.7-1.3); MAGNESIUM 1.9 mg/dL (1.8-2.4)
[2019-08-16 08:00] VITALS: BP 152/72
[2019-08-16 11:45] VITALS: BP 124/70
[2019-08-16 16:30] VITALS: BP 130/74
--- NOTE | 2019-08-16 19:36 | NUR ---
ASSUMED CARE OF PATIENT AT 0700. ASSESSMENTS COMPLETED. PATIENT C/O LEFT KNEE PAIN WHICH IS PARTIALLY RELIEVED WITH LIDOCAINE PATCH AND HYDRO 5/325. PATIENT ANXIOUS TO RETURN TO [place] TOMORROW, PENDING INSURANCE. PATIENT TO CONTINUE WITH POC.
[2019-08-16 19:46] VITALS: BP 151/82
[2019-08-17] VITALS (8 sets, daily range): BP systolic 152–168; BP diastolic 84–98
--- NOTE | 2019-08-17 01:25 | NUR ---
ASSESSMENTS CHARTED, MEDS CHARTED GIVEN. PATIENT RESTING IN BED DURING SHIFT. C/O PAIN 9/10, DID NOT HAVE PAIN MEDS AVAILABLE FOR PAIN ABOVE 6/10. SPOKE WITH Harjinder JIM AND ORDERS WERE CHANGED. PATIENT REPOSITIONED CHARTED BY TREE TRIMMING SUPERVISOR. PATIENT IS SCHEDULED TO RETURN TO [place] TOMORROW IF INSURANCE IS APPROVED. FALL PRECAUTIONS IN PLACE DURING SHIFT.
[2019-08-17 05:01] LABS: CALCIUM 7.9 mg/dL (8.5-10.1); CREATININE 0.8 mg/dL (0.7-1.3)
--- NOTE | 2019-08-17 13:14 | NUR ---
FAXED CLINICAL UPDATE TO [facility] SPOKE WITH CHRIS IN ADM SHE RECEIVED UPDATE.
--- NOTE | 2019-08-17 14:54 | NUR ---
Awaiting auth for return to [place]. Updated sister may transport later today or tomorrow.
--- NOTE | 2019-08-17 18:22 | NUR ---
PT CARE ASSUMED AT 0700. ASSESSMENTS CHARTED. MEDICATION CHARTED. WOUND CARE PERFORMED CHARTED. PT APPEARS TO BE IN LESS PAIN TODAY.
[2019-08-18] VITALS (7 sets, daily range): BP systolic 141–176; BP diastolic 8–103
--- NOTE | 2019-08-18 07:59 | NUR ---
ASSESSMENTS CHARTED, MEDS GIVEN CHARTED. PATIENT RESTING IN BED DURING SHIFT. STATES PAIN IS DECREASING IN HIS LEGS, BUT HE IS STILL UNWILLING TO WORK TO MAINTAIN HIS MOBILITY. PATIENT HAD BOWEL MOVEMENT ON BSC THIS MORNING AND STATED HE DID NOT WANT TO DO THAT AGAIN IT INVOLVED USING A JEANINE LIFT. FALL PRECAUTIONS IN PLACE DURING SHIFT.
--- NOTE | 2019-08-18 10:15 | NUR ---
SPOKE WITH CHRIS IN ADM AT [facility] THEY HAVE AUTH FOR SKILLED STAY.
[2019-08-18] MEDS ORDERED: CEFDINIR300 MG PO (11:27)
[2019-08-18] MEDS ORDERED: NORVASC10 MG PO (11:28)
[2019-08-18] MEDS ORDERED: MAG6464 MG PO (11:29)
[2019-08-18] MEDS ORDERED: BUMETANIDE 1 MG1 M1 PO (11:30)
[2019-08-18] MEDS ORDERED: AMMONIUM LACTA226 GM TOP (11:31)
[2019-08-18] MEDS ORDERED: B-12500 MCG PO (11:42)
--- NOTE | 2019-08-18 14:35 | NUR ---
Per [facility] yesterday they rec auth. However today they report they did not rec auth but they are faxing information to ins to obtain, updated rn and phys.
--- NOTE | 2019-08-18 17:10 | NUR ---
DC program planner and caset have faxed information and both spoken with [facility] od[facility]ut the day. At 1613 unit rec call from [employer] ins wanting caset to call. Called [employer] and sp with Kavita who reports they are neither denying skilled or approval they want Peer to Peer and phys wants more information. Sp with Dr Townsend who called and spoke with phys. They did not make a decision directly to phys. Anticipate dc tomorrow updated unit and sister.
--- NOTE | 2019-08-18 17:44 | NUR ---
PT CARE ASSUMED AT 0700. ASSESSMENTS CHARTED. MEDICATION CHARTED. WOUND CARE PERFORMED CHARTED. NEW SKIN TEAR DISCOVERED ON PT'S RT BACK NEAR HIS FLANK; DR CHAPPELL AND MEASUREMENT OPERATOR INFORMED. DISCHARGE ORDERS WRITTEN; AWAITING [place] APPROVAL.
[2019-08-19 05:05] VITALS: BP 167/88
--- NOTE | 2019-08-19 07:31 | NUR ---
PATIENTS CARES WERE ASSUMED AT SHIFT CHANGE. PATIENT WAS ASSESSED AND MEDS WERE PASSED. PATIENT DID HAVE A RESFUL NIGHT. HE DID SLEEP MOST OF THIS SHIFT. PATIENT ASKED FOR A COKE A BED TIME SNACK. HOURLY ROUNDS WERE DONE. THE PATIENTS BED IS IN THE LOW AND LOCKED POSITION.
[2019-08-19 08:01] VITALS: BP 148/80
[2019-08-19 08:59] VITALS: BP 148/80
--- NOTE | 2019-08-19 10:44 | NUR ---
[place] called this am and reports ins denied skilled. Patient to dc return to [facility] at [place]. DC conservation planner to coordinate. She alerted to sister patient will return to [facility]. no further needs.
--- NOTE | 2019-08-19 10:45 | NUR ---
WOUND CARE F/U; ROUNDING WITH DR MONTALVO AND CIRILO RN. NURSES REPORT A SKIN TEAR TO THE BACK. THE ASSESSMENT WAS DONE BY THE PICTURE RE; THE PATIENTS PAIN. THE SKIN TEAR WAS MININMAL. HEALTHY TISSUE WITH NO S/S OF INFECTION. THE BILATERAL LE CELLULITIS IS MUCH IMPROVED. RECOMMENDATION; CONTINUE CURRENT TX. DISCUSSED WITH ELBERT
--- NOTE | 2019-08-19 11:25 | NUR ---
CALLED REPORT TO FARNAM AT THIS TIME, MARCUS TOOK REPORT. EXPLAINED THE MAIN REASON FOR HIS DIAGNOSIS AND TREATMENT PLAN WHILE HE WAS IN THE HOSPITAL WITH US FOCUSED ON HIS RENAL STATUS AND IMPROVING HIS KIDNEY FUNCTION THROUGH MEDICATIONS AT THIS TIME. TRANSPORT FOR TODAY TO FACILITY IS PENDING.
--- NOTE | 2019-08-19 12:34 | NUR ---
PT DISCHARGING TODAY BACK TO [facility] LTC FAXED DC ORDERS/SUMMARY TO FACILITY RECEIVED CONFIRMATION AND LEFT MSG WITH CHRIS ORTIZ LIASON AT [facility] THAT I ARRANGED TRANSPORT THROUGH [facility] BY JOSE [facility] #[id number]. NOTIFIED PT'S SISTER (AMY) OF DC AND TIME OF TRANSPORT. UNIT NOTIFIED AND CHART COPY PER US. RN TO CALL REPORT.
== END 2019-08-19 11:57 | DRG 871 ==
LOC: ER 18:36 → EROBS 20:42 → 2N 20:42
PROVIDERS: Emergency Medicine; Internal Medicine; Nurse Practitioner Family; ADMIT Internal Medicine
DX: A41.9 Sepsis, unspecified organism (principal); N17.0 Acute kidney failure with tubular necrosis; G92 Toxic encephalopathy; I48.11 Longstanding persistent atrial fibrillation; L03.116 Cellulitis of left lower limb; L03.115 Cellulitis of right lower limb; I50.32 Chronic diastolic (congestive) heart failure; Z68.41 Body mass index [BMI] 40.0-44.9, adult; I11.0 Hypertensive heart disease with heart failure; I95.9 Hypotension, unspecified; E83.42 Hypomagnesemia; E78.5 Hyperlipidemia, unspecified; K59.00 Constipation, unspecified; E03.9 Hypothyroidism, unspecified; S80.212A Abrasion, left knee, initial encounter; I87.8 Other specified disorders of veins; M17.12 Unilateral primary osteoarthritis, left knee; E11.42 Type 2 diabetes mellitus with diabetic polyneuropathy; E11.51 Type 2 diabetes mellitus with diabetic peripheral angiopathy without gangrene; E66.9 Obesity, unspecified; R41.0 Disorientation, unspecified; F17.210 Nicotine dependence, cigarettes, uncomplicated; E87.6 Hypokalemia; E53.8 Deficiency of other specified B group vitamins; E86.9 Volume depletion, unspecified; G89.29 Other chronic pain; Z20.828 Contact with and (suspected) exposure to other viral communicable diseases; Z79.899 Other long term (current) drug therapy; X58.XXXA Exposure to other specified factors, initial encounter; Y93.89 Activity, other specified; Y92.89 Other specified places as the place of occurrence of the external cause; Y99.8 Other external cause status
CPT/HCPCS: 10081

== ENCOUNTER 2019-08-25 17:36 | Inpatient (IN) | payer OTHER ==
[~2019-08-25] VITALS: Ht 177.8 cm; Wt 128.4 kg
[~2019-08-25 17:36] MED LIST: AMMONIUM LACTA226 GM TOP; B-12500 MCG PO; BACLOFEN 10MG T10 MG PO; BUMETANIDE 1 MG1 M1 PO; BUMEX2 MG PO; CARVEDILOL25 MG PO; CEFDINIR300 MG PO; LEVOXYL112 MCG PO; LIPITOR40 MG PO; LYRICA 75 MG CA75 MG PO; MAG6464 MG PO; MELATONIN3 M1 PO; METFORMIN HCL500 MG PO; METOLAZONE 2.52.5 MG PO; MIRALAX17 G1 PO; MULTIVITAMINS1 EAC7 PO; NORCO 5-325 TA1 EAC1 PO; NORVASC10 MG PO; NORVASC5 M1 PO; NYSTATIN 100,0015 G1 TOP; POTASSIUM20 PO; SENNA LAXATIVE8.6 MG PO; XARELTO20 MG PO; ZESTRIL40 MG PO
[2019-08-25 17:38] VITALS: BP 88/41
[2019-08-25 18:24] LABS: ABSOLUTE NEUTROPHILS 10.1 thou/uL (1.4-8.2); BASOPHILS 0.2 % (0.0-2.0); EOSINOPHILS 1.5 % (0.0-3.0); HEMATOCRIT 32.2 % (42.0-52.0); HEMOGLOBIN 10.6 gm/dL (14.0-18.0); LYMPHOCYTES 8.5 % (24.0-44.0); MCHC 32.9 g/dL (28.0-37.0); MONOCYTES 7.7 % (1.0-8.0); PLATELET COUNT 389 thou/uL (150-400); POLYS 82.1 % (36.0-66.0); RBC 3.54 mil/uL (4.50-6.00); RDW 15.5 % (10.5-14.5); WBC 12.3 thou/uL (4.0-11.0)
[2019-08-25 18:33] LABS: ANION GAP 8 mmol/L (7-16); BUN 94 mg/dL (7-18); CALCIUM 8.2 mg/dL (8.5-10.1); CHLORIDE 95 mmol/L (98-107); CO2 24 mmol/L (21-32); CREATININE 2.3 mg/dL (0.7-1.3); GLUCOSE 159 mg/dL (74-106); POTASSIUM 4.1 mmol/L (3.5-5.1); SODIUM 127 mmol/L (136-145)
[2019-08-25 18:40] LABS: APTT 42.3 Seconds (24.5-32.8); D-DIMER 3.21 ug/mLFEU (0.19-0.50); INR 1.5; PROTIME 15.6 Seconds (9.3-11.4)
[2019-08-25 18:48] LABS: SGOT 66 U/L (15-37); SGPT 21 U/L (30-65); TOTAL BILIRUBIN 0.7 mg/dL (0.2-1.0); TOTAL PROTEIN 7.2 g/dL (6.4-8.2); TROPONIN-I <0.06 ng/mL (<0.06)
[2019-08-25 19:38] LABS: URINE BILIRUBIN NEGATIVE (Negative); URINE BLOOD TRACE (Negative); URINE CLARITY CLEAR; URINE COLOR YELLOW; URINE GLUCOSE-RANDOM* NEGATIVE (Negative); URINE KETONES NEGATIVE (Negative); URINE LEUKOCYTES-REFLEX NEGATIVE (Negative); URINE NITRITE-REFLEX NEGATIVE (Negative); URINE PROTEIN (DIPSTICK) NEGATIVE (Negative); URINE UROBILINOGEN 0.2 E.U./dl (0.2-1.0)
[2019-08-25 19:55] LABS: AMP/METHAMP Negative (Negative); BARBITURATES Negative (Negative); BENZODIAZEPINES Negative (Negative); COCAINE Negative (Negative); METHADONE Negative (Negative); OPIATES POSITIVE (Negative); PCP Negative (Negative)
[2019-08-25 20:28] VITALS: BP 113/64
--- NOTE | 2019-08-25 20:46 | NUR ---
CALLED [facility] TO GIVE REPORT AND WAS TOLD RN WILL CALL ME BACK...STILL WAITING
[2019-08-25 21:01] VITALS: BP 113/71
[2019-08-25 21:54] VITALS: BP 102/68
[2019-08-26 04:59] VITALS: BP 110/66
[2019-08-26 05:34] LABS: ABSOLUTE NEUTROPHILS 8.1 thou/uL (1.4-8.2); BASOPHILS 0.6 % (0.0-2.0); EOSINOPHILS 1.5 % (0.0-3.0); HEMATOCRIT 32.8 % (42.0-52.0); HEMOGLOBIN 10.9 gm/dL (14.0-18.0); LYMPHOCYTES 10.7 % (24.0-44.0); MCH 30.1 pg (26.0-34.0); MCHC 33.3 g/dL (28.0-37.0); MCV 90.5 fL (80.0-100.0); MONOCYTES 7.2 % (1.0-8.0); PLATELET COUNT 383 thou/uL (150-400); RBC 3.62 mil/uL (4.50-6.00); RDW 15.5 % (10.5-14.5); WBC 10.1 thou/uL (4.0-11.0)
[2019-08-26 06:00] LABS: CALCIUM 8.6 mg/dL (8.5-10.1); CREATININE 1.7 mg/dL (0.7-1.3)
--- NOTE | 2019-08-26 07:24 | NUR ---
RECEIVED REPORT FROM [facility] ED RN.PATIENT ARRIVED TO ROOM 218 AROUND 2200.A/O X 3.FORGETFUL AND WILL FALL ASLEEP IN BETWEEN CONVERSATIONS.COMPLAIN OF BILATERAL LOWER EXTREMITY PAIN.BACLOFEN GIVEN ORDERED.NS AT 100 ML/HR ALSO STARTED.LEFT BUTTOCK WOUND NOTED.PATIENT IS LETHARGIC THIS MORNING.MORNING MED UNABLE TO GIVE DUE TO LETHARGY.REPORT GIVEN TO DAY SHIFT RN.POC CONTINUED.
[2019-08-26 08:00] VITALS: BP 123/49
--- NOTE | 2019-08-26 08:18 | EKG ---
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: GERA : 1940 Requested By: Dori Marrero Order Number: [id number] MD: Pete Ellsworth Measurements Intervals [place] Rate: 73 P: SC: QRS: -46 QRSD: 143 T: 5 QT: 468 QTc: 516 Interpretive Statements Atrial fibrillation Occasional premature ventricular complexes Leftward axis Poor R wave progression Compared to ECG 08/13/2019 07:04:08 No significant change was found Electronically Signed On 08-26-2019 8:17:32 CDT by Pete Ellsworth [email or web address] <ELECTRONICALLY SIGNED> By: Pete Ellsworth MD, [facility] 08/26/19 0817 1906 1906 Pete Ellsworth MD, [facility] /EPI
--- NOTE | 2019-08-26 08:55 | NUR ---
PT NOT ALERT ENOUGH TO SAFELY TAKE MEDICATIONS THIS MORNING, WILL REASSESS THROUGHOUT THE DAY.
[2019-08-26 12:00] VITALS: BP 124/49
--- NOTE | 2019-08-26 14:42 | NUR ---
Case opened to follow for dc planning. Chart reviewed and discussed with the care team. Pt known to cm from previous admission last week. Pt is a jail care resident at [facility]. He was dc'd back to prison care on 08/19/19. [facility] had denied a SNF request for skilled therapies. The pt has been residing there for almost two years. He had been able to transfer until a fall a couple of months ago. He was readmitted with ARF, syncope, elev d dimer and hypotension. He is max assist for transfers due to his weakness and knee pain/cellulitis. They use a lift at the facility. Pt was lethargic this morning but more alert this afternoon. Court Advocate spoke with pt's sister Amarilis to confirm she was aware of his admission. She has the number for the nurses station for updates. The attending notified she would like to speak with him. DC urban and regional planner to fax update to [place] adm coordinator. Dc plan is to return to the longterm when stable. Pt will need [facility] arranged at [facility]. Will follow.
--- NOTE | 2019-08-26 15:38 | NUR ---
PT IS FROM [facility] FAXED CLINICAL UPDATE TO FACILITY RECEIVED CONFIRMATION AND LEFT MSG WITH CHRIS. DP TO FOLLOW.
[2019-08-26 16:00] VITALS: BP 124/49; BP 129/56
--- NOTE | 2019-08-26 18:20 | NUR ---
pt more alert this evening, able to swallow water and pills. order for diet received from dr watt. pt refused dinner, states he has no appetite. pt incontinent multiple times today.
[2019-08-26 20:00] VITALS: BP 119/68
[2019-08-27] VITALS: BP 124/67
[2019-08-27 04:30] VITALS: BP 126/69
[2019-08-27 05:30] LABS: HEMATOCRIT 31.5 % (42.0-52.0); HEMOGLOBIN 10.6 gm/dL (14.0-18.0); MCH 30.1 pg (26.0-34.0); MCHC 33.6 g/dL (28.0-37.0); MCV 89.8 fL (80.0-100.0); RBC 3.5 mil/uL (4.50-6.00); RDW 15.1 % (10.5-14.5); WBC 8.9 thou/uL (4.0-11.0)
[2019-08-27 06:22] LABS: CALCIUM 8.6 mg/dL (8.5-10.1); CREATININE 1.1 mg/dL (0.7-1.3); MAGNESIUM 1.8 mg/dL (1.8-2.4); POTASSIUM 3.7 mmol/L (3.5-5.1)
[2019-08-27 07:26] VITALS: BP 127/71
[2019-08-27 12:00] VITALS: BP 129/75
[2019-08-27] MEDS ORDERED: BUMETANIDE 1 MG1 M1 PO (14:46)
--- NOTE | 2019-08-27 14:52 | NUR ---
Pt dcing back to [facility] this afternoon at 4pm via stretcher van. DC discussed with the pt at bedside and his sister Amarilis via phone. Pt expressed interest in looking for another ltc facility and noted he has concerns about his care at [facility]. Pt deferred LTC referral discussion to his sister Amarilis and requested designer/writer contact the halfway to arrange for a care plan mtg upon his return. Sterile Preparation Technician spoke with both the Admin Jermey and sister Amarilis. Both aware of pt request and concerns including new pressure ulcer on his heel. Pt with poor appetite and depressed mood given his loss of independence and need for 14 day [place]intine [place] the [place]. He has become very debiliated over the past couple of months. Emotional support provided. Referrals sent to [facility] and [facility] per the ia supply chain planner. CP declined the ltc referral and Steffany with [facility] will f/u with the pt's sister and [facility] socialworker tomorrow. Pt and sister in agreement to return to [facility] and plan a care plan meeting regarding his concerns. Should they decide to move facilities, they will explore alternative ltc placement with the socialworker at [facility]. Nursing to call report. Wound care noting their recommendations.
[2019-08-27 15:05] VITALS: BP 129/75
--- NOTE | 2019-08-27 15:28 | NUR ---
PT DISCHARGING TODAY BACK TO [facility] FAXED DC ORDERS/SUMMARY TO FACILITY SPOKE WITH CHRIS IN ADM SHE RECEIVED ORDERS AND ARRANGED TRANSPORT BY [facility] FOR 1700 TODAY. NOTIFIED PT'S SISTER SHELL OF DC AND TIME OF TRANSPORT. UNIT NOTIFIED AND CHART COPY PER US. RN TO CALL REPORT TO [phone].
[2019-08-27 15:48] VITALS: BP 105/49
--- NOTE | 2019-08-27 17:24 | NUR ---
ASSUMED CARE AT SHIFT CHANGE, ALERT AND ORIENTED 3-4 AND FORGETFULL. ASSESSMENT DOCUMENTED, VSS AND AFEBRILE. PATIENT HAVE POOR APPETITE THROUGH THE DAY, DR PRESSLEY NOTIFIED, AND NEW ORDER FOR DIET SUPPLEMENT ORDERED. DISCAHRGE INSTRUCTION AND A COPY THE CHART SENT WITH PATIENT, AND PATIENT TRANSFERED BACK TO [facility].
--- NOTE | 2019-08-28 12:26 | HC ---
[facility] [place] [address] CONSULTATION Name: NATALY ROBLES Room #: 218-P [facility] IN M.R.#: [id number] Admission: 08/25/19 Attend Phys: Andrea Townsend MD Discharge: 08/27/19 Date of : 44 Report #: [id number] THIS REPORT FOR: cc: Keiko Luong,Adalberto Chan MD ~ CC: Andrea Luong DATE OF SERVICE: 08/27/2019 WOUND CARE CONSULTATION PERSONAL PHYSICIAN: Dr. Townsend. CHIEF COMPLAINT: Right heel ulcer. HISTORY OF PRESENT ILLNESS: This is a 79-year-old white male we have cared for in the past for chronic wounds and stasis dermatitis, bilateral lower extremities. The patient supposedly was at his care facility when he had a syncopal episode today and was brought back to the hospital for evaluation. The patient states that since he left the hospital most recently, he has developed an ulceration on his right heel that causes some mild pain. The patient otherwise denies any other new wounds. The patient states the chronic stasis dermatitis on his legs is slightly better. The patient denies any other new wounds besides the right heel. PAST MEDICAL HISTORY: Significant for type 2 diabetes; cellulitis, bilateral lower extremities; chronic venous insufficiency with stasis dermatitis; peripheral vascular disease; hypertension; atrial fibrillation; hyperlipidemia. CURRENT MEDICATIONS: Multiple, I reviewed the patient's medication list. DRUG ALLERGIES: None. SOCIAL HISTORY: The patient currently resides in a care facility. Denies alcohol use. FAMILY HISTORY: Noncontributory to current medical condition. REVIEW OF SYSTEMS: CONSTITUTIONAL: The patient denies fevers or chills. NEUROLOGIC: The patient had a syncopal episode, but denies headache, numbness, tingling or isolated arms or legs. EYES: No complaints. ENT: No complaints. [facility] [address] [place] [address] CONSULTATION Name: NATALY ROBLES Room #: 218-P [facility] IN [facility]#: [id number] Admission: 08/25/19 Attend Phys: Andrea Townsend MD Discharge: 08/27/19 Date of : 44 Report #: [id number] CARDIAC: The patient has chronic lower extremity edema without chest pain or palpitation. RESPIRATORY: The patient denies shortness of breath, cough or wheezes. GASTROINTESTINAL: The patient denies nausea, vomiting, abdominal pain. GENITOURINARY: The patient denies urgency or frequency. MUSCULOSKELETAL: No complaints. SKIN: The patient complains of a new ulceration on his right heel with pain as well as chronic stasis dermatitis. PHYSICAL EXAMINATION: VITAL SIGNS: Temperature 36.8, pulse 58, respirations 16, BP 129/75. GENERAL: Alert and oriented x 3, pleasant white male who is in no obvious distress. HEENT: Normocephalic, atraumatic. Mucous membranes are dry. Pupils are round. Sclerae white. NECK: Supple. LUNGS: Clear. HEART: Irregularly irregular. ABDOMEN: Obese, soft, nontender. EXTREMITIES: The patient moves all extremities without difficulty. Distal pulses are 1+. The patient has chronic stasis dermatitis, bilateral lower extremities with hemosiderin staining. There is 2+ edema, but no signs of cellulitis. Evaluation of right heel reveals an intact ecchymotic blister which is somewhat tender to palpation, but with no open ulcerations, no drainage, no signs of erythema, warmth, or cellulitis. Left heel is intact. NEUROLOGIC: Cranial nerves 2-12 grossly intact. Motor and sensory grossly intact. LABORATORY DATA: White count 10.1, hemoglobin 10.9. IMPRESSION: 1. Right heel deep tissue injury, new since last visit. Present on admission. 2. Chronic venous stasis dermatitis without cellulitis, bilateral lower extremities. 3. History of syncopal episode. 4. Diabetes mellitus type 2. 5. Generalized debility. PLAN: At this time, we will put the patient in heel protection boots at all times. We will use a moisturizer on bilateral lower extremities for stasis dermatitis. We will use Kerlix and Shelton for her toes to knee for control of the [address] [address] CONSULTATION Name: TRAVISNATALY Room #: 218-P DIS IN M.R.#: [id number] Admission: 08/25/19 Attend Phys: Andrea Townsend MD Discharge: 08/27/19 Date of : 44 Report #: [id number] patient's edema. I appreciate the ability to consult. We will continue to follow the patient. <ELECTRONICALLY SIGNED> By: Adalberto Rios MD 08/28/19 1226 0835 0844 Adalberto Rios MD /nt
== END 2019-08-27 17:46 | DRG 682 ==
LOC: ER 17:36 → 2N 19:52 → EROBS 19:52 → 2N 21:33
PROVIDERS: Nurse Practitioner Family; Physician Assistant; ADMIT Internal Medicine; ATTEND Internal Medicine
DX: N17.0 Acute kidney failure with tubular necrosis (principal); E43 Unspecified severe protein-calorie malnutrition; L03.116 Cellulitis of left lower limb; L03.115 Cellulitis of right lower limb; Z68.41 Body mass index [BMI] 40.0-44.9, adult; I95.9 Hypotension, unspecified; I10 Essential (primary) hypertension; E03.9 Hypothyroidism, unspecified; E78.5 Hyperlipidemia, unspecified; E11.51 Type 2 diabetes mellitus with diabetic peripheral angiopathy without gangrene; G47.00 Insomnia, unspecified; I48.91 Unspecified atrial fibrillation; I87.8 Other specified disorders of veins; F41.9 Anxiety disorder, unspecified; F32.9 Major depressive disorder, single episode, unspecified; Z20.828 Contact with and (suspected) exposure to other viral communicable diseases; F17.210 Nicotine dependence, cigarettes, uncomplicated; E86.9 Volume depletion, unspecified; K59.00 Constipation, unspecified; Z79.899 Other long term (current) drug therapy; Z82.49 Family history of ischemic heart disease and other diseases of the circulatory system
CPT/HCPCS: 10081

== ENCOUNTER 2020-01-25 17:27 | Inpatient (IN) | payer OTHER ==
[~2020-01-25] VITALS: Ht 185.4 cm; Wt 112.7 kg
--- NOTE | ~2020-01-25 | EMS ---
[address] [address] EMS Patient Care Report Name: NATALY ROBLES Room #: REG JOSH Patrick#: [id number] Admission: 01/25/20 Attend Phys: Discharge: Date of : 44 Report #: [id number] THIS REPORT FOR: //name// Report Transmitted: 01/25/2020 19:02 EMS Care Summary [place], [place] Incident [id number] @ 01/25/2020 16:42 Incident Location [address] [place] [address] Patient NATALY ROBLES Male, 79 Years 1940 Patient Address [address] [place], [place] [id number] Patient History Congestive Heart Failure (CHF),Diabetes,Hypertension (HTN),Hyperlipidemia,Pneumonia,Anxiety,Atrial Fibrillation,Peripheral Vascular Disease,Hypokalemia,Cellulitis,Insomnia, Patient Allergies No known allergies, Patient Medications Coreg, Metformin, Baclofen, Lipitor, Xarelto, OxyContin, Cyanocobalamin Co57, Bumetanide, Doxycycline, Melatonin, Lyrica, Cipro, Oxycodone, Voltaren, Levothyroxine, Disposition Transported No Lights/[place] Dispatch Reason Sick Person Transported To [facility] [place] Narrative THE PATIENT WAS FOUND LAYING IN THE BED AT THE [facility]. STAFF STATE THE PATIENT WAS NEWLY DIAGNOSED WITH PNEUMONIA AND OSTEOMYLITIS AND THE NURSING [address] [address] EMS Patient Care Report Name: NATALY ROBLES Room #: REG [facility].#: [id number] Admission: 01/25/20 Attend Phys: Discharge: Date of : 44 Report #: [id number] HOME DOCTOR WANTS THE PATIENT SENT OUT TO THE ER. THE PATIENT IS ALERT BUT CONFUSED SCORING A GCS OF 14. THE PATIENT COMPLAINS OF PAIN ALL OVER THE BODY AND STATES HE HAS BEEN SICK FOR SEVERAL DAYS. THE PATIENT WAS FOUND TO HAVE BRUISES IN VARIOUS STAGES OF HEALING ON ALL EXTREMITIES. BOTH FEET AND ANKLES WERE DRESSED WITH A GAUZE TYPE OF DRESSING. NO OTHER ABNORMALITIES WERE NOTED. NO CHANGES IN THE PATIENT'S CONDITION DURING TRANSPORT. THE PATIENT WAS MOVED TO BED 1 AT THE [facility] ER AND LEFT WITH THE SIDE RAILS UP AND LOCKED. CARE WAS TRANSFERRED TO THE ER NURSING STAFF. Initial Vitals @17:03P: 70,R: 16,BP: 103/63,Pain: 10/10,GCS: 14,Glucose: 120,CO: 0,SpO2: 95,Revised Trauma: 12, @17:09P: 91,R: 16,BP: 103/69,Pain: 10/10,GCS: 14,SpO2: 97,Revised Trauma: 12, Assessments @16:51MENTAL:Confused,Person Oriented,Place Oriented,SKIN:Pale,HEENT:Head/Face: No Abnormalities,Eyes: No Abnormalities,Neck/Airway: No Abnormalities,LUNG SOUNDS:General: No Abnormalities,Left Upper: No Abnormalities,Right Upper: No Abnormalities,Left Lower: No Abnormalities,Right Lower: No Abnormalities,ABDOMEN:General: No Abnormalities,Left Upper: No Abnormalities,Right Upper: No Abnormalities,Left Lower: No Abnormalities,Right Lower: No Abnormalities,PELVIS//GI:No Abnormalities,EXTREMITIES:Left Leg: Other,Right Leg: Other,PULSE:Radial: 2+ Normal,NEURO: Impression Pain (Non-Traumatic) Procedures @16:51ALS AssessmentResponse: Unchanged Timeline 16:40,Call Received 16:40,Dispatch Notified 16:42,Dispatched 16:43,En Route 16:48,On Scene 16:51,At Patient 16:51,ALS Assessment,Response: Unchanged 17:03,BP: 103/63 M,PULSE: 70,RR: 16 R,SPO2: 95 Ox,ETCO2: ,B,PAIN: 10,GCS: 14, 17:07,Depart Scene 17:09,BP: 103/69 M,PULSE: 91,RR: 16 R,SPO2: 97 Ox,ETCO2: ,BG: ,PAIN: 10,GCS: 14, 17:18,At Destination 17:38,Call Closed [address] [address] EMS Patient Care Report Name: NATALY ROBLES Room #: REG A[facility]ane[facility].#: [id number] Admission: 01/25/20 Attend Phys: Discharge: Date of : 44 Report #: [id number] Disclaimer v1.1 Copyright 2020 [employer] This EMS Care Summary contains data elements from the applicable legal record (which may be displayed differently). It is designed to provide pertinent information for the following purposes: continuity of care, clinical quality, and state data reporting. The complete legal record is available to ED staff and administrators of the receiving hospital in [facility]'s Patient Tracker. All data is provided "as is."
--- NOTE | ~2020-01-25 | O ---
[facility] [place] [address] [place] [address] OPERATIVE REPORT Name: NATALY ROBLES Room #: 218-P ADM IN M.R.#: [id number] Admission: 01/25/20 Attend Phys: Mitch Canada MD Discharge: Date of : 42 Report #: [id number] THIS REPORT FOR: cc: Keiko Luong,Keiko Bains,Ken Correa MD ~ CC: Keiko Canada PREOPERATIVE DIAGNOSES: Left foot osteomyelitis, cellulitis, nonhealing wound. POSTOPERATIVE DIAGNOSES: Left foot osteomyelitis, cellulitis, nonhealing wound. PROCEDURE PERFORMED: Left below-knee amputation. SURGEON: Ken Giron MD TICKET SCHEDULER: Zahida Osorio PA-C. ANESTHESIA: General per LMA. FLUIDS: 600 mL crystalloid. ESTIMATED BLOOD LOSS: Approximately 200 mL. SPECIMEN: Left lower extremity. DESCRIPTION OF PROCEDURE: After proper identification of the patient and operative site in preoperative holding area, the operative site was signed by myself. The patient's sister was also present at bedside. The patient has been seen by Wound Management, Infectious Disease and had a vascular ultrasound preoperatively as well. The patient and family elected to proceed with the above. We discussed the amputation level. Hopefully, he can heal a below-knee amputation level and that we will not need to go to an [id number] amputation level. He does have underlying knee arthritis per his sister and is primarily nonambulatory per her report. After reviewing this and elected to proceed with the above, he was brought back to the operative suite after induction of satisfactory general anesthesia, the left leg was elevated. Tourniquet was applied to the operative thigh. The limb was sterilely prepped and draped in the usual manner. The limb was elevated for exsanguination purposes. The tourniquet was inflated. Anterior and posteriorly based fishmouth incisions were planned. The patient had an area of venous stasis approximately 5 inch just below the joint line where the osteotomy was planned. An incision and full thickness skin flaps were performed after a timeout had been performed. Anterior and lateral compartment musculature, neurovascular bundles were divided. The neurovascular structures were identified, ligated and cauterized. Nerves were transected proximally after being retracted distally. An osteotomy [address] [address] OPERATIVE REPORT Name: NATALY ROBLES Room #: 218-P ADM IN M.R.#: [id number] Admission: 01/25/20 Attend Phys: Mitch Canada MD Discharge: Date of : 44 Report #: [id number] of the tibia was performed. Anterior edge was chamfered and then rasped and then proximal to this, the fibular osteotomy was performed. The posterior compartment musculature was then divided. The neurovascular structures were identified. Vessels were tied and cauterized and the nerves resection as previously described. The soft tissues were debrided to allow for a good closure and tourniquet was deflated. There was good hemostasis, some punctate bleeding in the tissues to consider this having a reasonable chance for healing. The patient had pronounced fatty infiltration of the muscles due to his lack of mobility and a [place] drain was placed deep after the wound was thoroughly irrigated with normal saline. Fascia was closed with #1 Vicryl, 2-0 Vicryl for the subcutaneous tissues and then 2-0 nylon and arnel were used to close the skin layer. A drain was freely mobile. Sterile dressing was applied and he was awakened and transferred to the recovery room in stable condition. By: 1534 1549 Ken Giron MD /nt
[2020-01-25 17:29] VITALS: BP 106/56
[2020-01-25 18:57] LABS: ABSOLUTE NEUTROPHILS 6.9 thou/uL (1.4-8.2); BASOPHILS 0.4 % (0.0-2.0); EOSINOPHILS 0.9 % (0.0-3.0); HEMATOCRIT 24.3 % (42.0-52.0); HEMOGLOBIN 8.1 gm/dL (14.0-18.0); LYMPHOCYTES 12.5 % (24.0-44.0); MCH 28.6 pg (26.0-34.0); MCHC 33.5 g/dL (28.0-37.0); MCV 85.5 fL (80.0-100.0); MONOCYTES 6.1 % (1.0-8.0); PLATELET COUNT 154 thou/uL (150-400); POLYS 80.1 % (36.0-66.0); RBC 2.84 mil/uL (4.50-6.00); RDW 17.2 % (10.5-14.5); WBC 8.6 thou/uL (4.0-11.0)
[2020-01-25 19:06] LABS: CALCIUM 7.9 mg/dL (8.5-10.1); CREATININE 0.9 mg/dL (0.7-1.3); POTASSIUM 3.9 mmol/L (3.5-5.1)
[2020-01-25 19:12] LABS: ALBUMIN 1.1 g/dL (3.4-5.0); DIRECT BILIRUBIN 0.4 mg/dL (<0.1-0.2); TOTAL BILIRUBIN 0.8 mg/dL (0.2-1.0); TOTAL PROTEIN 5.3 g/dL (6.4-8.2)
[2020-01-25 22:20] LABS: URINE BILIRUBIN NEGATIVE (Negative); URINE BLOOD NEGATIVE (Negative); URINE CLARITY CLEAR; URINE COLOR YELLOW; URINE GLUCOSE-RANDOM* NEGATIVE (Negative); URINE KETONES NEGATIVE (Negative); URINE LEUKOCYTES-REFLEX NEGATIVE (Negative); URINE NITRITE-REFLEX NEGATIVE (Negative); URINE PROTEIN (DIPSTICK) NEGATIVE (Negative); URINE UROBILINOGEN 0.2 E.U./dl (0.2-1.0)
[2020-01-26 06:03] LABS: HEMATOCRIT 22.7 % (42.0-52.0); HEMOGLOBIN 7.5 gm/dL (14.0-18.0); MCH 28.6 pg (26.0-34.0); MCHC 33.3 g/dL (28.0-37.0); MCV 85.8 fL (80.0-100.0); RBC 2.64 mil/uL (4.50-6.00); RDW 17.8 % (10.5-14.5); WBC 5.9 thou/uL (4.0-11.0)
[2020-01-26 06:39] LABS: CALCIUM 7.5 mg/dL (8.5-10.1); CREATININE 0.7 mg/dL (0.7-1.3); POTASSIUM 3.2 mmol/L (3.5-5.1)
--- NOTE | 2020-01-26 13:17 | NUR ---
PT IS FROM [facility] FAXED CLINICAL UPDATE TO FACILITY SPOKE WITH CHRIS IN ADM SHE RECEIVED UPDATE.
[2020-01-26 16:00] VITALS: BP 101/58
[2020-01-26 17:10] VITALS: BP 108/59
--- NOTE | 2020-01-26 19:15 | NUR ---
NEW ADMIT FROM ED FOR CELLULITIS, LE WOUNDS. FROM [facility], RA WITH PRODUCTIVE COUGH, AFIB ON TELE. PLACED RECTAL TUBE, BUTTOCKS EXCORIATED.BARRIER CREAM APPLIED. FALL PRECAUTIONS IN PLACE. ORRIENTED TO KAT, CALL LIGHT IN REACH.
[2020-01-26 21:43] VITALS: BP 119/74
[2020-01-27 04:45] VITALS: BP 129/71
[2020-01-27] MEDS ORDERED: SANTYL OINTMENT30 G1 TOP (04:46)
[2020-01-27] MEDS ORDERED: VITAMIN C500 M2 PO (04:49)
[2020-01-27] MEDS ORDERED: LIDOCAINE30 GM TOP (04:57)
[2020-01-27] MEDS ORDERED: DICLOFENAC SOD100 G1 (05:01)
[2020-01-27] MEDS ORDERED: ZINC SULFATE220 MG (05:04)
[2020-01-27] MEDS ORDERED: OXYCODONE HCL 55 MG PO (05:07)
[2020-01-27] MEDS ORDERED: OXYCODONE HCL E10 MG PO (05:09)
[2020-01-27] MEDS ORDERED: PROSOURCE275 GM (05:10)
--- NOTE | 2020-01-27 07:19 | NUR ---
ADMISSION NOTE: PATIENT WAS IN HIS ROOM WHEN I GOT HERE AT 1845. PATIENT IS A&OX 3-4 WITH EPISODES OF CONFUSION. PATIENT HAS MULTIPLE WOUNDS ALL OVER HIS BODY. PATIENT HAS MULTIPLE WOUNDS ON BOTH OF HIS FEET WHICH SMELL NECROTIC. PATIENT ALSO HAS AN ABRASION AND REDNESS ON HIS RIGHT BUTTOCK. PATIENT HAS WHAT APPEARS TO BE A SKIN TEAR ON HIS RIGHT FOREARM. PATIENT VERBALIZES UNDERSTANDING OF THE UPCOMING SURGERY. I PLACED A JACQUES AND A FMS. PATIENT DOES COMPLAIN OF PAIN IN HIS LEGS. DOCTOR NOTIFIED OF THIS.
[2020-01-27 07:52] LABS: HEMATOCRIT 27.7 % (42.0-52.0); MCH 28.5 pg (26.0-34.0); MCHC 32.4 g/dL (28.0-37.0); PLATELET COUNT 171 thou/uL (150-400); RBC 3.15 mil/uL (4.50-6.00); RDW 17.8 % (10.5-14.5); WBC 7.6 thou/uL (4.0-11.0)
[2020-01-27 08:07] LABS: CALCIUM 7.5 mg/dL (8.5-10.1); CREATININE 0.8 mg/dL (0.7-1.3); MAGNESIUM 1.7 mg/dL (1.8-2.4); POTASSIUM 3.1 mmol/L (3.5-5.1)
[2020-01-27 09:01] LABS: ABSOLUTE NEUTROPHILS 6.2 thou/uL (1.4-8.2); PLATELET ESTIMATE NORMAL
[2020-01-27 10:47] VITALS: BP 82/51
[2020-01-27 15:45] VITALS: BP 91/53
--- NOTE | 2020-01-27 15:47 | NUR ---
Case opened to follow for dc planning. Pt is well known to cm from multiple admissions over the past six months. He is a halfway care resident at [facility]. He has lived there for over two years and functions at a w/c level and is a lift for transfers. His le wounds and pain have been a limiting factor in his declining mobility over the past 6 months. Clinical update faxed to admissions at [facility]. They are aware of plan for ortho surgery/BKA tomorrow. Message sent to the attending to update pt's sister Amarilis who is very involved in his plan of care. [place] admissions would like to have PT/OT evals postop for possible skilled rehab per his [employer] plan as he may benefit from some therapy postop. Nursing has spoken with his sister Amarilis and she will be in later this afternoon to visit him. She is aware of the surgery tomorrow. Will follow for return to [place] at dc either SNF or ltc.
--- NOTE | 2020-01-27 19:37 | NUR ---
PT ALERT AND ORIENTED TIMES FOUR SOME CONFUSION. VSS, IVF INFUSING PER ORDER. SCHEDULED PAIN MEDICATIONS CONTROLLING PAIN WELL. DRESSING TO RIGHT, LEFT AND RIGHT ARM CHANGED. PT WILL BE NPO FOR SURGERY TOMORROW. PT DAUGHTER AT BEDSIDE THIS EVENING. WILL CONTINUE TO MONITOR.
[2020-01-27 20:45] VITALS: BP 111/49
--- NOTE | 2020-01-28 02:36 | NUR ---
ASSUMED CARE OF PATIENT AT 1900. VSS, AFEBRILE. NPO AFTER MIDNIGHT FOR PLANNED BKA. PATIENT BECOMES CONFUSED THROUGH THE NIGHT, NOT ABLE TO ANSWER ORIENTATION QUESTIONS. WORKING SLOWLY TOWARDS POC GOALS.
[2020-01-28 04:45] VITALS: BP 96/55
[2020-01-28 05:32] LABS: HEMATOCRIT 24.4 % (42.0-52.0); HEMOGLOBIN 8.1 gm/dL (14.0-18.0); MCH 28.7 pg (26.0-34.0); MCHC 33.2 g/dL (28.0-37.0); MCV 86.4 fL (80.0-100.0); RBC 2.83 mil/uL (4.50-6.00); RDW 17.5 % (10.5-14.5); WBC 9.2 thou/uL (4.0-11.0)
[2020-01-28 06:15] LABS: ALBUMIN 1.2 g/dL (3.4-5.0); CALCIUM 7.5 mg/dL (8.5-10.1); MAGNESIUM 1.9 mg/dL (1.8-2.4); POTASSIUM 3.5 mmol/L (3.5-5.1); TOTAL BILIRUBIN 0.6 mg/dL (0.2-1.0); TOTAL PROTEIN 5.5 g/dL (6.4-8.2)
[2020-01-28 08:00] VITALS: BP 103/54
[2020-01-28 11:20] VITALS: BP 95/59
--- NOTE | 2020-01-28 13:41 | NUR ---
DEFERRED O.T. EVALUATION DUE TO BKA SURGERY THIS DATE. NEED NEW O.T. ORDER POST-OP IF/WHEN APPROPRIATE.
[2020-01-28 16:31] VITALS: BP 95/79
--- NOTE | 2020-01-28 17:49 | HC ---
[facility] [place] [address] CONSULTATION Name: NATALY ROBLES Room #: 218-P ADM IN M.R.#: [id number] Admission: 01/25/20 Attend Phys: Mitch Canada MD Discharge: Date of : 44 Report #: [id number] THIS REPORT FOR: cc: Keiko Luong,Keiko Vidal,Wong Correa MD ~ DATE OF SERVICE: 01/26/2020 CHIEF COMPLAINT: Diabetic foot ulcerations. HISTORY OF PRESENT ILLNESS: This is a 79-year-old male patient with a history of bilateral lower extremity cellulitis and type 2 diabetes mellitus, who resides at [facility]. Apparently, he has been having severe pain in his legs. He has been having dressing changes. He apparently had an x-ray performed, which showed osteomyelitis of the calcaneus. I have been asked to see him with regard to wound care. The patient is being ruled out for possible COVID infection. He was noted to have a pulmonary infiltrate. He is in the COVID isolation. I have seen him in the Emergency Department. He does note pain in his legs, but also notes that he has pain everywhere. PAST MEDICAL HISTORY: Positive for type 2 diabetes mellitus, cellulitis, bilateral lower extremities; pneumonia, cardiac arrhythmia, hypertension, hypothyroidism, hyperlipidemia, peripheral vascular disease, hypokalemia, insomnia, osteoarthritis, and peripheral neuropathy. MEDICATIONS: Cefdinir, magnesium chloride, ammonium lactate, cyanocobalamin, bumetanide, metformin, melatonin, polyethylene glycol, Xarelto. ALLERGIES: None. SOCIAL HISTORY: Positive for history of alcohol use. FAMILY HISTORY: Unknown. REVIEW OF SYSTEMS: Very limited due to significant dementia and is covered in history of present illness or is otherwise negative or unobtainable. PHYSICAL EXAMINATION: VITAL SIGNS: At this time include temperature 36.5, pulse 72, respiratory rate 10, blood pressure 101/58. GENERAL: This is a chronically ill-appearing male patient who is mostly somnolent. HEENT: Head normocephalic. Nose and throat clear. NECK: Supple. [facility] [address] [place] [address] CONSULTATION Name: TRAVISNATALY Room #: 218-P ADM IN M.R.#: [id number] Admission: 01/25/20 Attend Phys: Mitch Canada MD Discharge: Date of : 44 Report #: [id number] ABDOMEN: Soft. EXTREMITIES: Lower extremities demonstrate significant erythema. Left leg and foot demonstrates a large ulcer on the posterior foot near the calcaneus. There is redness and drainage and some odor. NEUROLOGIC: The patient appears to move symmetrically. He has significant dementia. LABORATORY DATA: Include white blood cell count 5.9 with hemoglobin of 7.5. Sodium 136, potassium 3.2, chloride 105, CO2 of 24, BUN 17, creatinine 0.7, glucose 92, calcium is 7.5, albumin is very low at 1.1. Cultures have been obtained from the left foot wound, results pending. Blood cultures pending. Chest x-ray demonstrates mild to moderate cardiomegaly, no abnormalities. Left foot x-ray demonstrates no bony destruction to suggest osteomyelitis. Generalized osteopenia and no acute fracture or dislocation. CT scan of the left lower extremity demonstrates osteomyelitis with fragmentation of the posterior calcaneus, large ulcer with soft tissue gas on the posterior foot near the calcaneus, diffuse subcutaneous edema throughout the left lower extremity, osteoarthritis of the left knee and left ankle. CLINICAL IMPRESSION: 1. Diabetic foot ulceration of the left foot with underlying osteomyelitis and soft tissue and deeper tissue infection. 2. Type 2 diabetes mellitus. 3. Dementia. 4. Hypertension. 5. Hypothyroidism. RECOMMENDATIONS: At this time, we would recommend a Dakin's moist gauze to the left foot. He will need intravenous antibiotic therapy for both the cellulitis as well as the wound infection. With the significant amount of soft tissue destruction and bony destruction, I do not feel that the leg is likely to be salvageable, it would be appropriate to consult Orthopedics for amputation. It is unclear as to his ambulatory status; if he is nonambulatory, it may be worth considering an above-knee amputation rather than below-knee. We will additionally check arterial Dopplers and if necessary, maximize blood flow prior to surgical intervention if timing will allow. I do appreciate being asked to see him in consultation. <ELECTRONICALLY SIGNED> By: Wong Ansari MD 01/28/20 1749 1633 0001 Wong Ansari MD /nt
[2020-01-28 19:00] VITALS: BP 95/44
[2020-01-29] VITALS (7 sets, daily range): BP systolic 110–129; BP diastolic 67–87
[2020-01-29 04:35] LABS: WBC 9.1 thou/uL (4.0-11.0)
[2020-01-29 04:42] LABS: HEMOGLOBIN 6.5 gm/dL (14.0-18.0); MCH 29.2 pg (26.0-34.0); MCV 85.8 fL (80.0-100.0); RBC 2.22 mil/uL (4.50-6.00); RDW 17.5 % (10.5-14.5)
[2020-01-29 04:43] LABS: CALCIUM 7.3 mg/dL (8.5-10.1); CREATININE 1.1 mg/dL (0.7-1.3); MAGNESIUM 1.9 mg/dL (1.8-2.4); POTASSIUM 3.7 mmol/L (3.5-5.1); TOTAL BILIRUBIN 0.4 mg/dL (0.2-1.0); TOTAL PROTEIN 4.7 g/dL (6.4-8.2)
--- NOTE | 2020-01-29 08:11 | NUR ---
Pt HAD SURGERY YESTERDAY FOR BKA. WILL NEED NEW P.T. ORDERS TO RESUME.
[2020-01-29 08:32] LABS: RDW 17.6 % (10.5-14.5)
[2020-01-29 08:33] LABS: MCHC 31.9 g/dL (28.0-37.0); MCV 87.8 fL (80.0-100.0); RBC 2.25 mil/uL (4.50-6.00); WBC 11.3 thou/uL (4.0-11.0)
[2020-01-29 08:55] LABS: HEMATOCRIT 19.7 % (42.0-52.0); HEMOGLOBIN 6.3 gm/dL (14.0-18.0)
[2020-01-29 10:45] LABS: ABSOLUTE RETIC COUNT 0.0342 10^6/uL; OBSERVED RETIC COUNT 1.53 % (0.6-2.6)
--- NOTE | 2020-01-29 11:25 | NUR ---
PT JACQUES PULLING UPON MORNING ASSESSMENT D/T SWELLING. CATHETER CARE COMPLETED, STAT LOCK REMOVED AND NEW ONE APPLIED SO IT WAS NOT PULLING. SPOKE WITH DR PRESSLEY ABOUT PT IVF, NPO STATUS AND BLOOD TRANSFUSION
[2020-01-29 12:51] LABS: % SATURATION 42 % (20-39); IRON 32 ug/dL (65-175); TIBC 77 ug/dL (250-450)
[2020-01-29 13:47] LABS: FERRITIN 509 ng/mL (26-388)
--- NOTE | 2020-01-29 19:10 | NUR ---
PT RECEIVED BLOOD TRANSFUSION TODAY, WAS VERY DROWSY MOST OF THE DAY, ATE SOME JELLO AT BREAKFAST AND TURKEY FOR LUNCH. PT SISTER UP TO VISIT HIM. [facility] NOTIFIED OF NEED FOR STUMP WEDGER AND GLUER, SAY THEY WILL BRING IT SATURDAY UNLESS WE CALL THEM STAT THIS WEEKEND.
[2020-01-29 20:02] LABS: HEMATOCRIT 23.3 % (42.0-52.0); HEMOGLOBIN 7.2 gm/dL (14.0-18.0)
[2020-01-30 04:00] VITALS: BP 93/61
--- NOTE | 2020-01-30 04:25 | NUR ---
Assumed pt care at 1900. Pt is drowsy but responds to command. No sign of distress noted in pt. Pt verbalizes pain. Pt is stable through the night. Pain med administered as scheduled. Fall precaution in place. Assessment completed and documented. Tolerated PO intake. Fecal management system discontinued. Pt skin continue to weep. Reposition. No acute events overnight. Continue to monitor.No further needs at this time.
[2020-01-30 04:29] LABS: HEMATOCRIT 22.8 % (42.0-52.0); HEMOGLOBIN 7.3 gm/dL (14.0-18.0); MCH 28.7 pg (26.0-34.0); MCV 89.7 fL (80.0-100.0); RBC 2.54 mil/uL (4.50-6.00); RDW 17.3 % (10.5-14.5); WBC 11.7 thou/uL (4.0-11.0)
[2020-01-30 04:54] LABS: ALBUMIN 1.1 g/dL (3.4-5.0); CALCIUM 7.5 mg/dL (8.5-10.1); MAGNESIUM 1.9 mg/dL (1.8-2.4); POTASSIUM 3.5 mmol/L (3.5-5.1); TOTAL BILIRUBIN 0.4 mg/dL (0.2-1.0); TOTAL PROTEIN 4.9 g/dL (6.4-8.2)
[2020-01-30 08:20] VITALS: BP 94/57
[2020-01-30 16:50] VITALS: BP 103/63
--- NOTE | 2020-01-30 18:12 | NUR ---
PT ALERT TO SELF. VERY LETHARGIC AND SLEEPY THIS SHIFT. VSS. JACQUES TO DD. SCHEDULED PAIN MEDICATIONS CONTROLLING PAIN WELL. DRESSING TO LEFT LEG CHANGED PER NANI THAYER REQUEST, LARGE AMOUNT OF BLOODY DRAINAGE NOTED. ORTHO NOTIFIED AND STATED SHE WILL REMOVE MONCHO DRAIN IN THE MORNING. PT TOLERATES MEDS, BUT HAS VERY POOR APPETITE. PT SISTER AT BEDSIDE THIS AFTERNOON. WILL CONTINUE TO MONITOR.
[2020-01-30 20:33] VITALS: BP 93/61
[2020-01-31] VITALS: BP 94/59
[2020-01-31 04:45] VITALS: BP 93/53
[2020-01-31 05:31] LABS: HEMATOCRIT 21.4 % (42.0-52.0); MCH 28.6 pg (26.0-34.0); MCHC 32.5 g/dL (28.0-37.0); MCV 87.9 fL (80.0-100.0); RBC 2.44 mil/uL (4.50-6.00); RDW 16.8 % (10.5-14.5); WBC 12.7 thou/uL (4.0-11.0)
[2020-01-31 06:04] LABS: CALCIUM 7.6 mg/dL (8.5-10.1); CREATININE 0.9 mg/dL (0.7-1.3); MAGNESIUM 1.8 mg/dL (1.8-2.4); POTASSIUM 3.2 mmol/L (3.5-5.1); TOTAL BILIRUBIN 0.5 mg/dL (0.2-1.0); TOTAL PROTEIN 4.9 g/dL (6.4-8.2)
--- NOTE | 2020-01-31 06:08 | NUR ---
assumed pt care at the change of shift, pt is drowsy, easy to arouse, afib on the monitor, assessments as charted, pain meds given as scheduled, no needs at this time, will pass on report
[2020-01-31 08:21] VITALS: BP 109/52
[2020-01-31 15:08] LABS: HEMATOCRIT 31.5 % (42.0-52.0); MCH 28.2 pg (26.0-34.0); MCHC 30.1 g/dL (28.0-37.0); RBC 3.37 mil/uL (4.50-6.00); RDW 17.9 % (10.5-14.5); WBC 9.9 thou/uL (4.0-11.0)
[2020-01-31 15:10] LABS: HEMOGLOBIN 9.5 gm/dL (14.0-18.0); MCV 93.5 fL (80.0-100.0)
[2020-01-31 15:58] VITALS: BP 87/53
[2020-01-31 16:46] LABS: HEMATOCRIT 24.8 % (42.0-52.0); HEMOGLOBIN 8.1 gm/dL (14.0-18.0); MCH 28.9 pg (26.0-34.0); MCHC 32.6 g/dL (28.0-37.0); MCV 88.8 fL (80.0-100.0); RBC 2.8 mil/uL (4.50-6.00); RDW 17.2 % (10.5-14.5); WBC 11.8 thou/uL (4.0-11.0)
[2020-01-31 18:04] VITALS: BP 98/64
--- NOTE | 2020-01-31 19:17 | NUR ---
ASSUMED CARE AT SHIFT CHANGE, ALERT, DROWSY AND CONFUSED. SLEPT MOST OF THE DAY. Q2 POSITIONED, AND FAMILY UPDATED WITH PATIENT CONDITION. BP WAS 89/54 DR PRESSLEY NOTIFIED, MEDICATED PER ORDERS AND BP WNL. WILL CONTINUE WITH POC.
[2020-01-31 19:57] VITALS: BP 81/60
[2020-02-01 00:45] VITALS: BP 100/63
--- NOTE | 2020-02-01 03:30 | NUR ---
RECEIVED IN BED SLEEPING. NO S/S ACUTE DISTRESS NOTED OR REPORTED AT THIS TIME. WILL CONT TO MONITOR FOR ANY CHANGES IN CONDITION.
[2020-02-01 03:49] VITALS: BP 103/77
[2020-02-01 08:25] LABS: HEMATOCRIT 23.9 % (42.0-52.0); HEMOGLOBIN 7.7 gm/dL (14.0-18.0); MCH 28.4 pg (26.0-34.0); MCHC 32.1 g/dL (28.0-37.0); MCV 88.5 fL (80.0-100.0); RBC 2.7 mil/uL (4.50-6.00); RDW 17.5 % (10.5-14.5); WBC 11.2 thou/uL (4.0-11.0)
[2020-02-01 08:36] LABS: CALCIUM 7.9 mg/dL (8.5-10.1); CREATININE 0.8 mg/dL (0.7-1.3); MAGNESIUM 1.9 mg/dL (1.8-2.4); POTASSIUM 3.4 mmol/L (3.5-5.1)
[2020-02-01 09:00] VITALS: BP 96/52
[2020-02-01 11:20] VITALS: BP 87/35
[2020-02-01 16:20] VITALS: BP 113/60
--- NOTE | 2020-02-01 19:50 | NUR ---
ASSUMED CARE AT CHANGE OF SHIFT. ALERT TO SELF AND SITUATION, ABLE TO REORRIENT. PAIN REPOSITIONING AND MOVING EXTREMETIES FOR DRESSING CHANGES. GENEALIZED WHEEPING. PT UNABLE TO FEED SELF. PT ATE 100% OF OATMEAL, 25% OF LUNCH AND 35% OF DINNER. POOR URINE OUTPUT. UNABLE TO DEMONSTRATE CALL LIGHT. STAFF TO ANTICIPATE NEEDS.
[2020-02-01 22:50] VITALS: BP 106/66
[2020-02-02 04:45] VITALS: BP 92/51
[2020-02-02 08:30] VITALS: BP 113/62
[2020-02-02 09:09] LABS: HEMATOCRIT 23.2 % (42.0-52.0); HEMOGLOBIN 7.5 gm/dL (14.0-18.0); MCH 28.7 pg (26.0-34.0); MCHC 32.5 g/dL (28.0-37.0); MCV 88.2 fL (80.0-100.0); RBC 2.62 mil/uL (4.50-6.00); WBC 12.1 thou/uL (4.0-11.0)
[2020-02-02 09:27] LABS: CALCIUM 7.8 mg/dL (8.5-10.1); CREATININE 0.8 mg/dL (0.7-1.3); MAGNESIUM 1.8 mg/dL (1.8-2.4); POTASSIUM 3.2 mmol/L (3.5-5.1)
--- NOTE | 2020-02-02 11:51 | NUR ---
Ate very little for day 1 calorie count, 230 janki and 10g protein. DPOA will be assisting ordering meals and feeding pt so hopefully will see improvement in intake. Continue glucerna and trials of magic cups. New baseline wt s/p BKA 240 lb. Nutrition needs were reassessed-see calorie count form.
--- NOTE | 2020-02-02 12:44 | NUR ---
sister at bedside. Discussed with sister process for obtaining auth for skilled care. Discussed skilled rehab at [facility]. Sister reports once patient working with therapy his quality of life will improve when able to transfer to etc. Discussed patient needs to participate with therapy for authorization to move forward. Sister aware and reports her plan to disenroll in insurance plan. She discussed care concerns at [facility]. Discussed her options of expressing her concern and filing official complaint. At this time cont plan for skilled care.
--- NOTE | 2020-02-02 16:27 | NUR ---
FAXED CLINICAL UPDATE [place] [facility] SPOKE WITH CHRIS IN ADM SHE RECEIVE UPDATE. DP TO FOLLOW.
[2020-02-02 17:00] VITALS: BP 104/51
[2020-02-02 19:51] VITALS: BP 106/62
--- NOTE | 2020-02-02 20:26 | NUR ---
RECEIVED PT'S CARE AROUND 0715; PT. ON BED; RESTING WITH EYES CLOSED; EQUAL CHEST RISING NOTICED; AFIB ON THE MONITOR; DURING AM ASSESSMENT NO C/O PAIN; AM MEDICATIONS GIVEN; ABLE TO SWALLOW WELL; BREAKFAST FED BY NURSE AID; PER REPORT PT. HAD GOOD APPETITE; MONITOR MEALS INTAKE PER ORDERS; ABLE TO EAT MOST MEALS WITH SISTER; POTASSIUM LOW; PHYSICIAN NOTIFIED; ORDERS RECEIVED; TURNED FROM SIDE TO SIDE; WOUND CARE PERFORMED BY WOUND CARE PHYSICIAN AND NURSE; ASSESSMENT CHARGED; FOLLOWING POC; PASSED ON REPORT;
[2020-02-03 04:33] VITALS: BP 97/51
[2020-02-03 04:54] LABS: HEMATOCRIT 23.1 % (42.0-52.0); HEMOGLOBIN 7.7 gm/dL (14.0-18.0); MCH 29.2 pg (26.0-34.0); MCHC 33.3 g/dL (28.0-37.0); MCV 87.6 fL (80.0-100.0); RBC 2.64 mil/uL (4.50-6.00); RDW 16.9 % (10.5-14.5); WBC 10.6 thou/uL (4.0-11.0)
[2020-02-03 05:12] VITALS: BP 97/51
[2020-02-03 05:12] LABS: CALCIUM 7.6 mg/dL (8.5-10.1); MAGNESIUM 1.8 mg/dL (1.8-2.4); POTASSIUM 3.4 mmol/L (3.5-5.1)
[2020-02-03 07:20] VITALS: BP 96/49
--- NOTE | 2020-02-03 09:34 | NUR ---
RECEIVED CALL FROM [employer] THEY GAVE AUTH#[id number] APPROVED X3 DAYS 02/02 AND REVIEW 02/04 [employer]ORT[employer]AGE [employer] SALES IS JOSEPH MOORE FAX [phone]. LEFT MSG WITH CHRIS AT [facility].
--- NOTE | 2020-02-03 15:01 | NUR ---
Rec auth for [facility] skilled. Phys reports possible dc in am. Sp with sister who reports she will not be agreeable to dc in am. She is concerned of care team at [facility] and feels the care rec prior caused patient need amputation. She wants to know what wound care team will be seeing patient at [facility]. She reports large ulcer still near leg. She is concerned with nutrtional intake. Dr Townsend had discussed possible need for feeding tube. She wants to know if insurance auth skilled time how many days did they auth for? Alerted to sister she likely needs to discuss concerns and questions with [facility] ana CAMEJO at [facility] to call sister. Also requested phys call sister regarding POC. dc planner intern has sent updates to facility.
[2020-02-03 16:15] VITALS: BP 104/54
--- NOTE | 2020-02-03 17:06 | PATH ---
[facility] [address] [address] PATHOLOGY RPT PROCEDURE Name: NATALY ROBLES Room #: 218-P ADM IN M.R.#: [id number] Admission: 01/25/20 Date of : 44 Discharge: Report #: [id number] Path Case #: [id number] [facility] Accession Number: [id number] . 01 Material submitted: . leg - LEFT BELOW KNEE AMPUTATION. Modifiers: left . 01 Clinical history: . OSTEOMYELITIS OF THE CALCANEUS, CELLULITIS . 02 Diagnosis: Leg, left, below knee amputation: - Ulceration associated with marked acute inflammation, as well as gangrenous necrosis. - Underlying bone showing acute osteomyelitis, history of calcaneus osteomyelitis. - Anterior and posterior tibial vessels with significant luminal narrowing due to atherosclerosis. - Skin/soft tissue margin viable. - Bone margin grossly viable and unremarkable. (IUV:jennifer; 02/03/2020) MBR 02/03/2020 1639 Local . 02 Electronically signed: . Esther Brown MD, Pathologist NPI- [id number] . 01 Gross description: . Received fresh in a red biohazard bag labeled "Nataly Robles, left below knee amputation" is a left below the knee amputation specimen measuring 27.0 cm heel to proximal skin soft tissue margin and 24.2 cm heel to second toe. Protruding from the proximal margin is the tibia and fibula measuring 7.5 and 3.3 cm respectively. The skin shows extensive plaque/breast of the anterior wang. The foot displays multiple necrotic ulcerations of the heel and plantar foot measuring up to 9.0 cm (heel). The underlying soft tissue is exposed within these ulcerations. The proximal skin soft tissue and bone margins appear viable. The ulcerating heel necrotic lesion extends to the underlying bone which is markedly soft and friable. The anterior tibial artery vasculature displays stenotic calcified lumens. Electronic Parts Designer sections are submitted as follows: . A1: Skin soft tissue margin A2: Plaque/crusted skin A3: Heel necrotic lesion/ulceration A4: Bone deep to heel ulceration following decalcification A5: Anterior and posterior tibial arteries following decalcification (SDY; 02/02/2020) [place] [address] PATHOLOGY RPT PROCEDURE Name: NATALY ROBLES Room #: 218-P ADM IN M.R.#: [id number] Admission: 01/25/20 Date of : 44 Discharge: Report #: [id number] Path Case #: [id number] SYU/SYU 02/02/2020 0959 Local . 02 Pathologist provided ICD-10: M86.162, I70.262 . 02 CPT . 243937, [id number] Specimen Comment: A courtesy copy of this report has been sent to [phone] Specimen Comment: [phone], Specimen Comment: Report sent to [facility] / DR GONZALEZ Performed at: [address] [facility], [place] [id number] MD Calos Yepez MD Phone: [phone] Performed at: [address] [facility] [id number] MD Esther Brown MD Phone: [phone]
--- NOTE | 2020-02-03 19:05 | NUR ---
ASSUMED CARE OF PT AT SHIFT CHANGE. ASSESSMENTS CHARTED. MEDS GIVEN PER MAY. PT A&OX3. C/O PAIN TREATED WITH PO MEDS WITH LITTLE RELIEF. VOMITING AFTER BREAKFAST AND DINNER. [facility] WILL CONTINUE TO MONITOR AND FOLLOW POC.
[2020-02-03 23:56] VITALS: BP 117/73
[2020-02-03 23:57] VITALS: BP 117/73
[2020-02-04 04:47] VITALS: BP 121/74
--- NOTE | 2020-02-04 05:23 | NUR ---
PATIENTS CARES WERE ASSUMED AT SHIFT CHANGE. PATIENT WAS PLACED IN A WOUND BED. PATIENT REQUESTED HIS PHONE AND HAS BEEN AWAKE MOST OF THIS SHIFT, PATIENT DID NOT NEED ANY COVERAGE OF INSULIN. ACCUCHECK WAS 149. THE PATIENTS BED IS IN A LOW AND LOCKED POSITION.
[2020-02-04 05:35] LABS: HEMOGLOBIN 7.5 gm/dL (14.0-18.0); MCH 29.1 pg (26.0-34.0); MCHC 32.7 g/dL (28.0-37.0); RBC 2.58 mil/uL (4.50-6.00); RDW 17.4 % (10.5-14.5); WBC 7.9 thou/uL (4.0-11.0)
[2020-02-04 05:44] LABS: CALCIUM 7.4 mg/dL (8.5-10.1); CREATININE 0.9 mg/dL (0.7-1.3); POTASSIUM 4.3 mmol/L (3.5-5.1)
[2020-02-04 08:15] VITALS: BP 128/88
--- NOTE | 2020-02-04 13:36 | NUR ---
DC to SNF at [facility] on hold due to vomiting. [facility] notified but requested to make f/u call to pt's sister Amarilis to answer her questions about their therapy program and utilization with the [employer]. Amarilis here at bedside today. Will follow.
--- NOTE | 2020-02-04 14:29 | NUR ---
ASSUMED CARE PT SHIFT CHANGE. ASSESSMENT CHARTED.MEDS GIVEN PER MAY. PT ALERT, ORIENTED X1-2. CONFUSED. SISTER AT BEDSIDE THROUGHOUT SHIFT. ZOFRAN GIVEN BEFORE BREAKFAST, NO C/O NAUSEA/VOMIT. WOUND CARE COMPLETED PER ORDERS. PT TOLERATING MEALS WELL. PT TO TX TO 463. REPORT GIVEN TO VILMA BOSWELL. TELE REMOVED. PT LEFT UNIT WITH ALL BELONGINGS ACCOMPANIED BY SISTER.
[2020-02-04 15:29] VITALS: BP 106/53
[2020-02-04 18:57] VITALS: BP 85/41
[2020-02-04 18:59] VITALS: BP 108/70
--- NOTE | 2020-02-04 20:23 | NUR ---
ASSUMED CARE OF PT APPROX. 1445. DOCTOR NOTIFIED OF HGB 7.5, BLOOD PRESSURE , AND PALE SKIN. PATIENT SISTER AT BEDSIDE. DRESSING TO LEFT AKA PASSED TO ONCOMING NURSE. PATIENT ON 2L O2 NO SIGNS OF DISTRESS. WILL CONTINUE TO MONITOR.
[2020-02-04 20:28] VITALS: BP 107/63
[2020-02-05 05:42] LABS: HEMATOCRIT 22.9 % (42.0-52.0); HEMOGLOBIN 7.5 gm/dL (14.0-18.0); MCH 29.4 pg (26.0-34.0); MCHC 32.9 g/dL (28.0-37.0); MCV 89.4 fL (80.0-100.0); RBC 2.56 mil/uL (4.50-6.00); RDW 17.7 % (10.5-14.5); WBC 8.5 thou/uL (4.0-11.0)
--- NOTE | 2020-02-05 05:48 | NUR ---
Assumed care on 02/04/20 @ 1999, in bed calm and oriented to person only. cooperative with care, [place] thick water provided meds crushed in applesauce. Dressings C/D/I, Will continue to monitor as per unit policy. Will continue to monitor as per unti policy.
[2020-02-05 06:56] LABS: CALCIUM 7.3 mg/dL (8.5-10.1); CREATININE 0.7 mg/dL (0.7-1.3); POTASSIUM 4.2 mmol/L (3.5-5.1)
--- NOTE | 2020-02-05 11:55 | NUR ---
CARE TEAM INDICATED THAT PT IS MEDICALLY STABLE TO DISCHARGE HOME THIS DAY. [facility] IS ABLE TO ACCEPT PT FOR PT, OT, NURSING (WOUND CARE) UPON DC. CM FAXED ORDERS. CHICA ARRANGED TRANSPORT VIA [employer] WITH HIS OWN ELECTRIC WC BETWEEN [phone]. CM NOTIFIED PT. HE IS AWARE AND AGREEABLE.
[2020-02-05] MEDS ORDERED: IPRAT-ALBUT 0.5-3 ML INH (12:34)
--- NOTE | 2020-02-05 16:19 | NUR ---
DC TO [facility] WAS ATTEMTPED FOR THIS DAY. CM MET WITH PT'S SISTER THIS AM AND SHE WAS AWARE AND AGREABLE WITH PT GOING BACK TO FACILITY WITH SKILLED PT, OT, ST, AND NURSING FOR WOUND CARE. CM WAS AWAITING ORDERS AND A TRNASPORT TIME. ROCKY FROM FACILITY CONTACTED PT'S SISTER AND NOTIFIED HER THAT THEY WERE OUT OF NETWORK WITH PT'S [employer] PLAN. SISTER NOTIFIED CM. CM CALLED FACILITY AND WAS TOLD THAT YES THAT IS THE CASE BUT THAT THEY COULD WORK OUT SOMETHING LIKE A SINGLE CASE AGREEMENT AT PT IS AN LTC PT THERE. CM NOTIFIED PT'S SISTER OF THIS. SHE EXPRESSED FURTHER DISSATISFACTION WITH WOUND CARE AND SERVICES PROVIDED AT [facility] AND STATED THAT SHE JUST CAN'T HAVE PT GO BACK THERE. CM AGAIN INDICATED THAT PT DIDN'T NEED ACUTE INPATIENT HOSPITALIZATION AND THAT HE IS MEDICALLY STABLE TO RETURN TO [facility] AND THAT STAFF ARE AWARE AND WILL ASSIST IN FINDING [facility] PLACEMENT. SHE AGAIN INDICATED THAT WASN'T ACCEPTABLE. CM RECORD PRODUCER SPOKE WITH HER AND IT WAS DETERMINED THAT PT WILL REMAIN UNTIL SATURDAY. CM NOTIFIED PHYSICIAN AND ASKED THAT REPEAT COVID TEST BE ORDERED AND DONE ON SATURDAY. CM TO SEND REFERRAL TO [facility] FOR REVIEW FOR POSSIBLE ADMISSION. CM TO FOLLOW INDICATED WITH DC PLANNING. STAFF NOTIFIED PT'S SISTER THAT
--- NOTE | 2020-02-05 18:31 | NUR ---
ASSUMED CARE OF PATIENT AT APPROX 0800. ASSESSMENT CHARTED. MEDICATIONS ADMINISTERED PER MAR. VSS. PATIENT AWAKENED WHEN CALLED BUT NAPS INTERMITENTLY THROUGHOUT THE DAY. INTAKE IS IMPROVING; TOLERATES FOOD AND DRINK WELL W/O N/V. PATIENT HAD BM TODAY WHEN GETTING A BATH. SACRAL WOUND HAD SANGUINOUS DRAINAGE. WOUND CARE TEAM SAW PATIENT AND CHANGED DRESSING ON L STUMP. DRESSING ON RLE IS C/D/I. REPOSITIONED FREQUENTLY. C/O PAIN AND GIVEN PRN PAIN MEDS, VOICES NO OTHER NEEDS. FALL PRECAUTIONS IN PLACE. WILL CONTINUE TO MONITOR AND ENDORSE TO NOC RN.
[2020-02-05 20:00] VITALS: BP 104/59
[2020-02-05 20:04] VITALS: BP 104/59
[2020-02-06 05:33] LABS: HEMATOCRIT 22.4 % (42.0-52.0); HEMOGLOBIN 7.3 gm/dL (14.0-18.0); MCH 28.8 pg (26.0-34.0); MCHC 32.5 g/dL (28.0-37.0); MCV 88.6 fL (80.0-100.0); RBC 2.52 mil/uL (4.50-6.00); RDW 18.7 % (10.5-14.5); WBC 7.8 thou/uL (4.0-11.0)
[2020-02-06 05:59] LABS: CALCIUM 7.7 mg/dL (8.5-10.1); CREATININE 0.8 mg/dL (0.7-1.3); POTASSIUM 3.6 mmol/L (3.5-5.1)
[2020-02-06 07:52] VITALS: BP 105/60
[2020-02-06 16:18] VITALS: BP 110/58
--- NOTE | 2020-02-06 18:07 | NUR ---
ASSUMED CARE OF PATIENT AT APPROX 0800. ASSESSMENT CHARTED. MEDS GIVEN PER MAR. VSS. PATIENT IS ALERT TO SELF AND CONFUSED. APPETITE IS POOR TODAY. PATIENT IS REPOSITIONED FREQUENTLY. CAREGIVER(SISTER) STATED HE "REFUSED TO EAT". C/O PAIN "EVERYWHERE". PRN PAIN MED ADMINISTERED PER ORDER. PATIENT WAS SEEN BY PROVIDER AND DEEMED MEDICALLY STABLE BUT AWAITING PLACEMENT/AUTHORIZATION TO FACILITY. ON LOW AIR LOSS MATTRES. FALL PRECAUTIONS IN PLACE. FREQUENT CHECKS DONE. VOICED NO OTHER CONCERNS. WILL CONTINUE TO MONITOR
[2020-02-06 21:15] VITALS: BP 105/74
--- NOTE | 2020-02-07 04:35 | NUR ---
VSS-AFEBRILE. ALERT AND ORIENTED X 2-3, OCCASIONAL FORGETFULNESS/CONFUSION. C/O SIGNIFICANT ALL OVER BODY PAIN, ADMINISTERED A ONE TIME DOSE OF 4MG MORPHINE, PARTIAL RELIEF NOTED. TURNED AND OFFERED ORAL HYDRATION EVERY TWO HOURS FOR COMFORT. LARGE SACRAL WOUND DRAINED COPIOUS AMOUNTS OF SEROUS DRAINAGE TO DRAINAGE PAD. CLEANSED WOUND AND APPLIED Z-GUARD PER ORDERS. WOUND BED IS BLOODY. GOOD SNACK OVERNIGHT, NO DIFFICULTY SWALLOWING. FALL PRECAUTIONS IN PLACE.
[2020-02-07 07:46] VITALS: BP 117/75
[2020-02-07 13:52] VITALS: BP 109/75
--- NOTE | 2020-02-07 19:58 | NUR ---
Assumed pt care this am, VS stable. Diet and medicatiosn are tolerated well. Would refuse Q2 turns at times. Sister at the bedside. edema in the scrotum is noted. Would care and dressing changes done. Fc in place drainig yellow urine. Pain is managed with medeications. POC followed, endorsed to the night nurse.
[2020-02-07 19:59] VITALS: BP 107/55
[2020-02-07 20:17] VITALS: BP 117/68
[2020-02-08 05:36] LABS: HEMATOCRIT 24.6 % (42.0-52.0); HEMOGLOBIN 8.1 gm/dL (14.0-18.0); MCH 29.2 pg (26.0-34.0); MCV 88.6 fL (80.0-100.0); RBC 2.78 mil/uL (4.50-6.00); RDW 18.4 % (10.5-14.5); WBC 7.7 thou/uL (4.0-11.0)
[2020-02-08 05:51] LABS: CALCIUM 8.3 mg/dL (8.5-10.1); CREATININE 0.7 mg/dL (0.7-1.3)
[2020-02-08 07:43] VITALS: BP 103/41
--- NOTE | 2020-02-08 12:20 | NUR ---
REFERRAL HAD BEEN SENT SATURDAY TO [facility] PER PT'S SISTER'S REQUEST. SISTER NOW INDICATING THAT SHE WANTS REFERRAL SENT TO [facility] FOR REVIEW FOR POSSIBLE ADMISSION. REFERRAL TO BE SENT. CM NOTIFIED LIAISON MATEUSZ. HAS NEGATIVE COVID TEST FROM YESTERDAY. CM TO FOLLOW INDICATED WITH HOPEFUL DC TODAY.
[2020-02-08 14:53] VITALS: BP 112/68
--- NOTE | 2020-02-08 14:58 | NUR ---
[facility] IS ABLE TO ACCEPT PT FOR ADMISSION THIS DAY. CM NOTIFIED PT'S SISTER. SHE IS AWARE AND AGREEABLE. CM FAXED ORDERS, DC [facility], NEGATIVE COVID TEST RESULTS, AND [id number]. CM ARRANGED [employer] TRANSPORT FOR BETWEEN [phone]. CHART COPY MADE. REPORT TO BE CALLED TO . NO OTHER CM INTERVENTION INDICATED. CASE CLOSED.
--- NOTE | 2020-02-08 15:48 | NUR ---
ASSUMED CARE OF PATIENT AT APPROX. 0700. ASSESSMENT CHARTED. MEDICATIONS ADMINISTERED PER MAR CRUSHED IN PUDDING. VSS. PATIENT IS A&OX2-3 AND FORGETFUL. AFEBRILE AND DENIES SOA OR CHEST PAIN. PATIENT VOICES PAIN "EVERYWHERE" AT AN 8/10. PRN PAIN MEDICINE ADMINISTERED PER ORDERS. PATIENT HAS MULTIPLE WOUNDS; SACRAL WOUND CLEANSED W NS AND APPLIED ZGUARD AND BARRIER OINTMENT; OPEN TO AIR. STUMP DRESSING C/D/I. RLE WOUND CARE DONE. RUE WOUND CARE DONE. FAMILY AT BEDSIDE ASSISTED W FEEDINGS. STILL TOLERATING PUREED DIET. PATIENT HAD A COMPLETE BED BATH THIS AFTERNOON. PLAN IS FOR PATIENT TO DISCHARGE TO [facility] THIS PM [phone]. REPOSITIONED FREQUENTLY; ON SPECIALTY BED. FALL PRECAUTIONS IN PLACE; FREQUENT CHECKS DONE. WILL CONTINUE TO MONITOR AND FOLLOW PLAN OF CARE UNTIL DISCHARGE
--- NOTE | 2020-02-08 20:38 | NUR ---
I AGREE WITH NURSING ASSESSMENT AND NURSING NOTE DONE BY SHAYE/COIL INSPECTOR.
== END 2020-02-08 17:31 | DRG 853 ==
LOC: ER 17:27 → 2N 21:34 → EROBS 21:34 → 2N 01-26 17:44 → 4W 02-04 14:30
PROVIDERS: Emergency Medicine; Hospitalist; Internal Medicine; Nurse Practitioner Family; ADMIT Internal Medicine; ATTEND Internal Medicine
PROC: 0Y6J0Z1 Detachment at Left Lower Leg, High, Open Approach (ICD-10-PCS; 2020-01-28)
PROC: 30233N1 Transfusion of Nonautologous Red Blood Cells into Peripheral Vein, Percutaneous Approach (ICD-10-PCS; principal; 2020-01-29)
DX: A41.9 Sepsis, unspecified organism (principal); L89.153 Pressure ulcer of sacral region, stage 3; E43 Unspecified severe protein-calorie malnutrition; L03.116 Cellulitis of left lower limb; D62 Acute posthemorrhagic anemia; M86.8X7 Other osteomyelitis, ankle and foot; L97.419 Non-pressure chronic ulcer of right heel and midfoot with unspecified severity; E11.621 Type 2 diabetes mellitus with foot ulcer; E11.628 Type 2 diabetes mellitus with other skin complications; E11.65 Type 2 diabetes mellitus with hyperglycemia; E03.9 Hypothyroidism, unspecified; E78.5 Hyperlipidemia, unspecified; G47.00 Insomnia, unspecified; M17.0 Bilateral primary osteoarthritis of knee; F03.90 Unspecified dementia, unspecified severity, without behavioral disturbance, psychotic disturbance, mood disturbance, and anxiety; E11.51 Type 2 diabetes mellitus with diabetic peripheral angiopathy without gangrene; D64.9 Anemia, unspecified; F17.210 Nicotine dependence, cigarettes, uncomplicated; E53.8 Deficiency of other specified B group vitamins; L97.529 Non-pressure chronic ulcer of other part of left foot with unspecified severity; R53.81 Other malaise; I87.8 Other specified disorders of veins; L97.519 Non-pressure chronic ulcer of other part of right foot with unspecified severity; I95.9 Hypotension, unspecified; I48.0 Paroxysmal atrial fibrillation; E11.42 Type 2 diabetes mellitus with diabetic polyneuropathy; Z20.828 Contact with and (suspected) exposure to other viral communicable diseases; Z99.3 Dependence on wheelchair; Z68.32 Body mass index [BMI] 32.0-32.9, adult; Z79.84 Long term (current) use of oral hypoglycemic drugs; Z79.899 Other long term (current) drug therapy
CPT/HCPCS: 10045; 10047; 10081; 50010; 50101; 50386; 51412; 53000; 56524; 56525; 56527; 57091; 57180; 62110; 62900; 70005

== ENCOUNTER 2020-04-22 12:29 | Inpatient (IN) | payer OTHER ==
[~2020-04-22] VITALS: Ht 180.3 cm; Wt 101.5 kg
[~2020-04-22 12:29] MED LIST changes: +DICLOFENAC SOD100 G1; +IPRAT-ALBUT 0.5-3 ML INH; +LIDOCAINE30 GM TOP; +OXYCODONE HCL 55 MG PO; +OXYCODONE HCL E10 MG PO; +PROSOURCE275 GM; +SANTYL OINTMENT30 G1 TOP; +VITAMIN C500 M2 PO; +ZINC SULFATE220 MG
[2020-04-22 12:31] VITALS: BP 134/111
--- NOTE | 2020-04-22 13:40 | NUR ---
TAISHA CASPER NURSE AT BEDSIDE TO OBTAIN PICC LINE ACCESS. CONSENT OBTAINED
--- NOTE | 2020-04-22 14:48 | NUR ---
VAT CALLED TO ER FOR PICC LINE. PT VERY STIFF UNABLE TO EXTEND ARMS. PT'S HX,ORDER AND CONSENT VERIFIED. ATTEMPTED ISA CEPHALIC AND DAVY BRACHIAL, VESSEL COLLAPSED WHEN INTRODUCER INSERTED. FINALLY DAVY BRACHIAL WIDELY PATENT WITH USG. 4FR SL POWER PICC TRIMMED TO 37CM INSERTED TO 0CM EXTERNAL. STAT CXR ORDERED.
--- NOTE | 2020-04-22 15:00 | NUR ---
CXR CONFIRMED PICC IN SVC. RELEASED FOR IMMEDIATE USE PER PROTOCOL TO AMY BOSWELL
[2020-04-22 15:55] LABS: HEMATOCRIT 20.6 % (42.0-52.0); PLATELET COUNT 117 thou/uL (150-400); RBC 2.37 mil/uL (4.50-6.00)
[2020-04-22 15:57] LABS: HEMOGLOBIN 6.5 gm/dL (14.0-18.0); MCH 27.4 pg (26.0-34.0); MCHC 31.4 g/dL (28.0-37.0); MCV 87.2 fL (80.0-100.0); RDW 16.4 % (10.5-14.5); WBC 21.2 thou/uL (4.0-11.0)
[2020-04-22 16:10] LABS: ALBUMIN 0.9 g/dL (3.4-5.0); CALCIUM 7.9 mg/dL (8.5-10.1); CREATININE 1.5 mg/dL (0.7-1.3); TOTAL BILIRUBIN 0.5 mg/dL (0.2-1.0)
[2020-04-22 16:16] LABS: APTT 55.9 Seconds (24.5-32.8); PROTIME 31.3 Seconds (9.3-11.4)
[2020-04-22 16:17] LABS: POTASSIUM 6.6 mmol/L (3.5-5.1)
[2020-04-22 16:43] LABS: ABSOLUTE NEUTROPHILS 20.1 thou/uL (1.4-8.2); METAMYELOCYTES 1 %
[2020-04-22 16:44] LABS: ANISOCYTOSIS 1+; BURR CELLS 2+; HYPOCHROMASIA 2+
[2020-04-22] MEDS ORDERED: BUMEX2 MG PO (18:22)
[2020-04-22] MEDS ORDERED: CALCIUM 500 +1 EAC6 PO (18:23)
[2020-04-22] MEDS ORDERED: POTASSIUM20 MEQ/15 PO (18:25)
[2020-04-22 20:28] LABS: URINE BILIRUBIN NEGATIVE (Negative); URINE BLOOD 3+ (Negative); URINE CLARITY CLOUDY; URINE COLOR YELLOW; URINE GLUCOSE-RANDOM* NEGATIVE (Negative); URINE KETONES NEGATIVE (Negative); URINE LEUKOCYTES-REFLEX 3+ (Negative); URINE NITRITE-REFLEX POSITIVE (Negative); URINE PROTEIN (DIPSTICK) 2+ (Negative); URINE SPECIFIC GRAVITY 1.015 (1.005-1.035); URINE UROBILINOGEN 0.2 E.U./dl (0.2-1.0)
[2020-04-22 20:31] LABS: HYALINE CASTS 0-3 Few /LPF (None Seen); SQUAMOUS 0-3 Few /LPF (0-3)
[2020-04-22 20:32] LABS: URINE WBC-REFLEX >25 Many /HPF (0-5)
[2020-04-22 20:33] LABS: BACTERIA-REFLEX >30 Many /HPF (None Seen); CRYSTALS None Seen /LPF (None Seen); URINE RBC >20 Many /HPF (0-2); YEAST-REFLEX Present (None Seen)
[2020-04-22 22:29] VITALS: BP 103/68; BP 87/51
[2020-04-22 22:47] VITALS: BP 109/74
[2020-04-23] VITALS (85 sets, daily range): BP systolic 76–135; BP diastolic 47–99
--- NOTE | 2020-04-23 03:48 | NUR ---
Pt admitted to ICU room 240 from ED at 0100. Pt moaning, non-coherent, does follow some simple commands. On room air, sat 94-96%. Monitor a-fib, which is chronic for pt. Pt has numerous wounds - middle back and sacral pressure ulcers, right lower leg vascular wounds including ulceration on right heel and vascular wounds up medial side right foot, skin tears on both arms. Old drsgs removed and pictures taken of all wounds. Wounds redressed - see interventions in meditech. Pt admitted with blood transfusing from ED; blood transfusion finished by 0200 without any signs/symptoms of reaction. Pt on Levophed at 15 mcg/min to keep MAP > 60. Urine in gordon from facility grossly cloudy with sediment, only 150 cc in bag; gordon dc'd and replaced with #16 uruguayan gordon, no difficulty with insertion but no urine returned for approximately 30-45 minutes. Urine cloudy, blood tinged, < 30 cc. Pt's sister, Amarilis Kruse, called at 0200 to be updated on pt status. Mrs. Kruse was given pt's access code and unit phone number as well.
[2020-04-23 04:20] LABS: CREATININE 1.6 mg/dL (0.7-1.3); HEMATOCRIT 23.7 % (42.0-52.0); HEMOGLOBIN 7.6 gm/dL (14.0-18.0); MCH 27.6 pg (26.0-34.0); MCV 86.1 fL (80.0-100.0); RBC 2.75 mil/uL (4.50-6.00); RDW 16.6 % (10.5-14.5)
[2020-04-23 04:22] LABS: POTASSIUM 6.2 mmol/L (3.5-5.1)
[2020-04-23 09:05] LABS: CALCIUM 7.4 mg/dL (8.5-10.1); CREATININE 1.6 mg/dL (0.7-1.3); POTASSIUM 5.6 mmol/L (3.5-5.1)
--- NOTE | 2020-04-23 14:58 | NUR ---
PT RESTING COMFORTABLY. LEVOPHED GTT FOR BP MANAGEMENT. PT AFEBRILE, OLIGURIC(PROVIDER AWARE), NO BM, NO NUTRITION BEING GIVEN. UNABLE TO DOPPLER A PULSE ON RIGHT LOWER EXTREMITY. WOUNDS WERE DRESSED UPON ARRIVAL BY PM NURSE. PT AND SISTER HAVE BEEN UPDATED AND EDUCATED ON PT CONDITION AND POC. PT NOT PROGRESSING TOWARDS POC.
[2020-04-24] VITALS (50 sets, daily range): BP systolic 84–107; BP diastolic 57–75
[2020-04-24 07:07] LABS: GLYCOHEMOGLOBIN (HGB A1C) 5.4 % (4.8-5.6)
[2020-04-24 09:21] LABS: POTASSIUM 5.5 mmol/L (3.5-5.1)
[2020-04-24 09:22] LABS: CALCIUM 7.7 mg/dL (8.5-10.1); CREATININE 1.7 mg/dL (0.7-1.3)
[2020-04-24 10:59] LABS: HEMATOCRIT 25.5 % (42.0-52.0); MCH 27.3 pg (26.0-34.0); MCHC 31.4 g/dL (28.0-37.0); MCV 86.9 fL (80.0-100.0); RBC 2.93 mil/uL (4.50-6.00); RDW 17.2 % (10.5-14.5); WBC 17.2 thou/uL (4.0-11.0)
--- NOTE | 2020-04-24 13:33 | HC ---
[facility] [place] [address] CONSULTATION Name: NATALY ROBLES Room #: 240-P ADM IN M.R.#: [id number] Admission: 04/22/20 Attend Phys: Berlin Norwood MD Discharge: Date of : 42 Report #: [id number] THIS REPORT FOR: cc: Johann Clements MD, Srinath MD Geha,Silverio Rojo MD ~ DATE OF SERVICE: 04/23/2020 REASON FOR CONSULTATION: I was asked to evaluate concerning Gram-negative septic shock. HISTORY OF PRESENT ILLNESS: The patient is a 80-year-old with known diabetes, hypertension, peripheral vascular disease, who was hospitalized in January with gangrene of his left foot that required BKA. Subsequently, he has been cared for at a local snf facility. He presents now with progressive sacral and thoracic pressure wounds along with bleeding from his right calf wound. On presentation, he was hypotensive, anemic without fever. The patient was unable to give any further details. He did complain of pain all over. He was also screened positive for COVID-19. He has had no cough or sputum production. He is on no supplemental oxygen. Denies any nausea and vomiting. He continues to have loose stools as his baseline. His indwelling Au catheter has been chronic and is now noted a significant amount of sediment. This was changed on his admission. His CT scan did show evidence of thickening of the bladder wall. CT of the pelvis; however, did not show dilated ureters in this noncontrast study. His urine output has been poor. He is on IV fluid resuscitation and vasopressors. The left upper extremity PICC was placed yesterday. He has had no drainage from his left BKA stump incision. Sutures remain in place. REVIEW OF SYSTEMS: A 14-point review of system was negative other than what has been described above. ALLERGIES: None known. MEDICATIONS: As noted on his MAR, having been started on ceftriaxone on admission and I switched him earlier today to Zosyn. He also continues on vancomycin. PAST MEDICAL HISTORY: Diabetes, lower extremity venous stasis disease and wounds, pneumonia, atrial fibrillation, hypertension, hypothyroidism, hyperlipidemia, peripheral vascular disease, hypokalemia, insomnia, osteoarthritis of both knees, peripheral neuropathy, and left BKA. FAMILY HISTORY: No report of tuberculosis. [address] [address] CONSULTATION Name: NATALY ROBLES Room #: 240-P [facility] IN M.R.#: [id number] Admission: 04/22/20 Attend Phys: Berlin Norwood MD Discharge: Date of : 42 Report #: [id number] SOCIAL HISTORY: Past nonsmoker and past alcohol use. PHYSICAL EXAMINATION: VITAL SIGNS: Afebrile, blood pressure is stable now on Levophed drip. GENERAL: He is alert and cooperative, although very poor historian, unable to give me details. EXTREMITIES: Left BKA incision was well approximated with sutures still in place. Right lower extremity pressure wounds over the lateral foot heel, posterior calf with no surrounding cellulitis and moderate bleeding from the posterior calf. Sacrum stage 4 necrotic wound with odor and purulent drainage. The thoracic spine wound had full thickness tissue necrosis and odorous drainage. There was mild surrounding erythema. This area was exquisitely tender as well as the sacral wound. No palpable adenopathy. EYES: Without scleral icterus. MOUTH: Without mucositis. NECK: Supple. LUNGS: Clear to auscultation. HEART: Regular, without murmur, gallop or rub. ABDOMEN: Obese, soft and nontender with no hepatosplenomegaly or mass appreciated. GENITOURINARY: External genitalia without mass or lesion. RECTAL: Not performed. He has an indwelling Au catheter with some purulence from the penis. NEUROLOGIC: Left upper extremity PICC without erythema or drainage. The patient was able to move all extremities. Pulses were diminished in his right foot. Mood is without anxiety. Cranial nerves are intact. LABORATORY STUDIES: Reviewed. MICROBIOLOGY: Reviewed. Chest x-ray and CT of the pelvis reviewed. IMPRESSION: 1. A 80-year-old with gram-negative septic shock, etiology of which I suspect ___ over his back and pelvic wounds. 2. Peripheral vascular disease, status post left below-knee amputation. 3. COVID-19 infection without evidence of pneumonia at this point. 4. Acute kidney injury. 5. Atrial fibrillation. 6. Diabetes. 7. Delirium. 8. Anemia. 9. Hyponatremia. 10. DIC suspect. [address] [address] CONSULTATION Name: NATALY ROBLES Room #: 240-P [facility] IN M.R.#: [id number] Admission: 04/22/20 Attend Phys: Berlin Norwood MD Discharge: Date of : 42 Report #: [id number] 11. Metabolic acidosis. RECOMMENDATIONS: We will continue combination gram-negative and Gram-positive coverage, pending final culture results. Maintain in COVID isolation and monitor closely for any evidence of progression. The patient will be a good candidate for monoclonal antibody infusion, although hospital does not support such. Ultrasound to ensure no ureteral obstruction. General Surgery evaluation for debridement of the sacrum and his thoracic wound. Full ICU support with fluids and vasopressors as necessary. The patient is in serious condition and outlook for full recovery seems poor, but we will give him full support and see how he does over the next 24-48 hours. I have discussed in detail with ICU staff regarding treatment approach. <ELECTRONICALLY SIGNED> By: Silverio Goldman MD 04/24/20 1333 1719 10 Silverio Goldman MD /nt
--- NOTE | 2020-04-24 15:09 | NUR ---
PT RESTING COMFORTABLY ON RA. LEVOHED GTT OFF SINCE PM SHIFT. PT FSC BUT IS CHRONICALLY CONFUSED. CHRONIC AFIB ON MONITOR. DIFFUSE PITTING EDEMA WITH ANSARCA. ADEQUATE UOP AFTER IV LASIX GIVEN, NO BM, NO NUTRITION, MODERATE HYPOTHERMIA. PT AND FAMILY HAVE BEEN UPDATED AND EDUCATED ON PT CONDITION AND POC. PT NOT PROGRESSING TOWARDS POC.
[2020-04-25] VITALS (46 sets, daily range): BP systolic 84–113; BP diastolic 54–78
[2020-04-25 05:38] LABS: CALCIUM 7.1 mg/dL (8.5-10.1); CREATININE 1.4 mg/dL (0.7-1.3); POTASSIUM 4.9 mmol/L (3.5-5.1)
[2020-04-25 06:17] LABS: MCV 85.7 fL (80.0-100.0)
[2020-04-25 06:19] LABS: HEMATOCRIT 23.2 % (42.0-52.0); HEMOGLOBIN 7.3 gm/dL (14.0-18.0); MCHC 31.6 g/dL (28.0-37.0); RBC 2.71 mil/uL (4.50-6.00); RDW 17.3 % (10.5-14.5); WBC 16.5 thou/uL (4.0-11.0)
--- NOTE | 2020-04-25 06:40 | NUR ---
PATIENT MORE ALERT TODAY. PATIENT REQUESTED JELLO, WATER, AND PAIN MEDS. PATIENT TOLERATED ALL WELL. PATIENT TO BE SEEN BY WOUND CARE TODAY. CONTINUE WITH CURRENT PLAN OF CARE.
--- NOTE | 2020-04-25 07:22 | EKG ---
[address] [place] [address] ELECTROCARDIOGRAM REPORT Name: NATALY ROBLES Room #: 240-P ADM IN M.R.#: [id number] Admission: 04/22/20 Attend Phys: Berlin Norwood MD Discharge: Date of : 42 Report #: [id number] [facility] ED Test Date: 2020-04-22 Test Time: 16:34:49 Pat Name: NATALY ROBLES Department: Room: 240 Gender: M Connie Cleaner: david : 1940 Requested By: Deborah Corona Order Number: [id number] MD: Pete Ellsworth Measurements Intervals [place] Rate: 85 P: NE: QRS: -53 QRSD: 156 T: -23 QT: 401 QTc: 477 Interpretive Statements Atrial fibrillation Right bundle branch block Compared to ECG 08/25/2019 19:06:47 Ventricular premature complex(es) no longer present Electronically Signed On 04-25-2020 7:22:23 [employer]IONING ENGINEER by Pete Ellsworth [email or web address] <ELECTRONICALLY SIGNED> By: Pete Ellsworth MD, [facility] 04/25/20721 1634 163 Pete Ellsworth MD, [facility] /EPI
--- NOTE | 2020-04-25 10:38 | NUR ---
79-year-old male with a history of bilateral LE cellulitis, DM 2, pneumonia, HTN, HLD, PVD, A-fib, osteoarthritis, loose bowel syndrome, peripheral neuropathy, and hypothyroidism who presented to the ED from [facility] with chronic wounds on his sacral area as well as the right lower extremities. NOTE: the wounds have been bleeding increasingly since he had a bedside debridement done at [place]. The patient has been admitted for: Hypotension, Sec to Hypovolemia. Pt bled significantly, ABLA. 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 Patient has been admitted to ICU level of care on Vanc and Zoysn and remains on pressors. Notably patient is alert and speaking and remains at this time on Room Air. Patient last here and contact with sister Amarilis Kruse [phone] and cell of [phone] on . At that time arranged for stretcher van transportation and the patient was admitted to [facility]. Spoke with sister and re-introduced role of CM. At this point plan will be to return to [place] at discharge per sister. Sister wanted to thank everyone as she stated the ICU nurses have been amazing and she went on to say how grateful she is that her brother is in the care of [facility]. CM will continue to follow for discharge needs.
--- NOTE | 2020-04-25 10:49 | NUR ---
Nutrition: Severe malnutrition (poor intake, severe weight loss, edema) Usual diet is pureed/thickened liquids. REC ST eval and if unable to advance diet today and pt eating adequately, REC consider DH placement with Pivot 1.5 at 65 mL/hr. Increased nutrient needs related to wound healing.
--- NOTE | 2020-04-25 11:13 | NUR ---
PATIENT IS COVID POSITIVE, IS HAVING DIFFICULTY WITH FOLLOWING SIMPLE COMMANDS. PATIENT USES A JEANINE LIFT AT BASELINE, MULTIPLE WOUNDS ON HIS BACK/SACRAL AREA. WILL PLACE ON HOLD UNTIL HE IS MORE MEDICALLY STABLE. WILL NEED NEW ORDERS. DISCUSSED WITH RN.
--- NOTE | 2020-04-25 13:23 | NUR ---
PT SCREENED BY THERAPY SERVICES ON THIS DATE. 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 USES JEANINE LIFT FOR TXS IN/OUT OF BED. PT IS ABLE TO FOLLOW ONLY MINIMAL SIMPLE COMMANDS AND DOES NOT TOLERATE LE ROM DUE TO DISCOMFORT AND WEAKNESS. PT IS NOT DEEMED TO BE A CANDIDATE FOR P.T. IN ACUTE CARE SETTING AT THIS TIME. RECOMMEND CONTINUED FREQUENT REPOSITIONING TO OFFLOAD CURRENT WOUNDS AND PREVENT ADDITIONAL SKIN BREAKDOWN. PLAN IS FOR PT TO RETURN TO LTC FACILITY ONCE MEDICAL STATUS STABILIZES.
--- NOTE | 2020-04-25 16:43 | NUR ---
PT RESTING COMFORTABLY. CHRONIC AFIB ON MONITOR. FLUIDS DC'D PER RENAL. PT HYPOTHERMIC, ADEQUATE UOP, NO BM, PAIN MODERATELY WELL CONTROLLED, PT DOES NOT WISH TO EAT. WOUND CARE COMPLETED BY WOUND TEAM AND RN, RECCOMMENRodriguez NO PRESSURE DRESSING. POSSIBLE I&D AT BEDSIDE TOMORROW BY SURGICAL TEAM. PT AND SISTER HAVE BEEN UPDATED AND EDUCATED ON PT CONDITION AND POC. PT NOT PROGRESSING TOWARDS POC.
[2020-04-26] VITALS (32 sets, daily range): BP systolic 84–143; BP diastolic 57–87
--- NOTE | 2020-04-26 06:47 | NUR ---
PATIENT WAS ALERT TO SELF AND PLACE THRU THE NIGHT. PATIENT REMAINS ON RA. PATIENT REMAINS OFF OF LEVO. DRESSING CHANGED AT 0000. PLAN FOR I AND D TODAY.
--- NOTE | 2020-04-26 08:34 | NUR ---
Unable to obtain temp. Warm blankets applied. Education provided.
--- NOTE | 2020-04-26 08:53 | NUR ---
Dr. Canada rounded, update given in regards to urine output, blood pressure, and overall patient status. He expressed he will place orders.
--- NOTE | 2020-04-26 10:12 | HC ---
[facility] [place] [address] CONSULTATION Name: NATALY ROBLES Room #: 240-P ADM IN M.R.#: [id number] Admission: 04/22/20 Attend Phys: Berlin Norwood MD Discharge: Date of : 42 Report #: [id number] THIS REPORT FOR: cc: Johann Clements MD, Srinath MD Althoff,Wong Correa MD ~ DATE OF SERVICE: 04/25/2020 CHIEF COMPLAINT: Multiple ulcerations. HISTORY OF PRESENT ILLNESS: This is a 80-year-old male patient with whom we are familiar from recent hospitalization during which he underwent a left below-knee amputation. He is admitted to the hospital with sepsis and pressure ulceration to the mid thoracic region as well as sacral region as well as the right lower extremity. The patient can provide no information about himself. He does make some brief eye contact, but only moans when interacted with. The patient reportedly has had some bedside debridement performed [facility], details of which are not available at this time. ALLERGIES: No known drug allergies. MEDICATIONS: Include ipratropium and albuterol, vitamin C, Lipitor, bumetanide, calcium with vitamin D, carvedilol, cyanocobalamin, diclofenac, levothyroxine, magnesium chloride, melatonin, multivitamin, nystatin, oxycodone, polyethylene glycol, potassium chloride, pregabalin, protein supplement, Xarelto and zinc sulfate. SOCIAL HISTORY: Unknown. FAMILY HISTORY: Unknown. REVIEW OF SYSTEMS: Not obtainable due to the patient's decreased level of consciousness and inability to answer any questions at this time. PHYSICAL EXAMINATION: VITAL SIGNS: At this time include temperature is 35.7, pulse 89, respiratory rate of 9, and blood pressure 100/64. GENERAL: This is a chronically ill male patient who appears to be in minimal discomfort. HEENT: Head is normocephalic. NECK: Supple. LUNGS: Diminished. HEART: Irregular. ABDOMEN: Soft. EXTREMITIES: Examination of the back demonstrates a very large pressure [facility] [address] [place] [address] CONSULTATION Name: NATALY ROBLES Room #: 240-P [facility] IN M.R.#: [id number] Admission: 04/22/20 Attend Phys: Berlin Norwood MD Discharge: Date of : 42 Report #: [id number] ulceration to the mid thoracic spine region. It is covered with a wet eschar that is foul smelling. Depth cannot be determined, sacral ulceration also with some moist eschar with some odor. It is deeper than the T-spine area, although the base cannot be adequately visualized due to the presence of eschar and slough. Lower extremities demonstrates the ulcerations to the right posterior calf and ankle that is quite extensive. There is dry eschar involving the plantar right heel base of the fifth metatarsal and fifth MTP region. He has weeping edema of his extremities, upper and lower, as well as the scrotum. Left BKA site is examined. Sutures remain in place, some of which have skin beginning to grow over them. I have removed the sutures without too much difficulty. CLINICAL IMPRESSION: 1. Unstageable pressure ulcer to the mid thoracic spine region. 2. Unstageable sacral pressure ulceration. 3. Arterial and/or diabetic origin ulcerations to the right lower extremity and foot, the lateral foot may be related more to pressure. 4. Skin tears to bilateral forearms. 5. Recent left below-knee amputation sometime in 01/2020, sutures removed today. 6. History of COVID-19 positive. 7. Type 2 diabetes mellitus. 8. Hyperlipidemia. 9. Atrial fibrillation. 10. Sepsis requiring pressor support until the last 24 hours. 11. Dementia. 12. Severe protein-calorie malnutrition with albumin 0.9. RECOMMENDATIONS: At this point in time, the pressure ulcers to the sacrum and to the mid back may be contributing to his sepsis picture. Ideally, if he were medically stable, he would have a surgical debridement of both areas. It is noted that surgery is planned, has seen him and is planning to do a bedside debridement of the T-spine ulceration if he becomes more stable and it is felt that he would be an appropriate candidate for general anesthesia. I think he would benefit from an operative debridement of both areas. We will recommend a Dakin's moist gauze dressing and ABD to both regions of the mid back as well as the sacrum. We will recommend ABD pads to the lower extremities with absorbent pads for drainage. His skin is cool. I am reluctant to use any compression at this time. We will recommend nonadherent dressings to the left BKA and recommend elevation whenever possible. He will need aggressive nutritional [address] [address] CONSULTATION Name: TRAVISNATALY Room #: 240-P ADM IN M.R.#: [id number] Admission: 04/22/20 Attend Phys: Berlin Norwood MD Discharge: Date of : 42 Report #: [id number] support and ongoing aggressive management of his other medical conditions. I appreciate being asked to see him in consultation. <ELECTRONICALLY SIGNED> By: Wong Ansari MD 04/26/20 1012 1754 02 Wong Ansari MD /nt
--- NOTE | 2020-04-26 11:33 | NUR ---
unable to obtain temp, patient feels cool and slightly warm. Dr. Goldman here and aware. Labs being sent per physician order.
[2020-04-26 12:03] LABS: HEMOGLOBIN 7.2 gm/dL (14.0-18.0)
[2020-04-26 12:08] LABS: HEMATOCRIT 22.5 % (42.0-52.0); MCH 27.3 pg (26.0-34.0); MCHC 32.1 g/dL (28.0-37.0); MCV 85.1 fL (80.0-100.0); RBC 2.64 mil/uL (4.50-6.00); RDW 17.2 % (10.5-14.5); WBC 21.3 thou/uL (4.0-11.0)
[2020-04-26 12:26] LABS: ALBUMIN 0.9 g/dL (3.4-5.0); CALCIUM 7.5 mg/dL (8.5-10.1); CREATININE 1.4 mg/dL (0.7-1.3); MAGNESIUM 1.8 mg/dL (1.8-2.4); POTASSIUM 4.1 mmol/L (3.5-5.1); TOTAL BILIRUBIN 0.5 mg/dL (0.2-1.0); TOTAL PROTEIN 4.8 g/dL (6.4-8.2)
--- NOTE | 2020-04-26 15:46 | NUR ---
4077- Nurse updated patients sister, Amarilis, on patients status and overall treatments/conditions. Her questions were answered.
--- NOTE | 2020-04-26 17:20 | NUR ---
1720- Patients sister, Amarilis, was able to facetime with patient today.
--- NOTE | 2020-04-26 19:30 | NUR ---
Patient not progressing towards plan of care as evidenced by continued chronic wounds, non healing, need for ICU, refusal to take in adequate oral intake, and decreasing platelets and hbg. Plan of care is to continue to perform wound care, monitor for bleeding, monitor vital signs, and continue to monitor temperature. Nurse has been unable to obtain a temperature with multiple thermometer. [place] warmer placed, physicians aware. Wound care physician rounded this afternoon.
[2020-04-27] VITALS (22 sets, daily range): BP systolic 96–119; BP diastolic 60–79
[2020-04-27 05:11] LABS: HEMOGLOBIN 6.9 gm/dL (14.0-18.0); MCV 85.5 fL (80.0-100.0)
[2020-04-27 05:13] LABS: HEMATOCRIT 21.5 % (42.0-52.0); MCH 27.4 pg (26.0-34.0); MCHC 32.1 g/dL (28.0-37.0); RBC 2.52 mil/uL (4.50-6.00); RDW 17.4 % (10.5-14.5); WBC 16.8 thou/uL (4.0-11.0)
[2020-04-27 05:24] LABS: CALCIUM 7.4 mg/dL (8.5-10.1); CREATININE 1.6 mg/dL (0.7-1.3); MAGNESIUM 1.8 mg/dL (1.8-2.4); POTASSIUM 4.1 mmol/L (3.5-5.1)
--- NOTE | 2020-04-27 14:11 | NUR ---
Nurse talked with Exercise Instruct at [facility] where patient resides. She expressed his first positive covid test was 03/30/20. This was read back to her and comfirmed correct. This was relayed to Dr. Gentry Goldman for further orders, and he expressed patient may come out of isolation. This was relayed to Dr. Canada, waiting further orders. Family would like to come visit him.
--- NOTE | 2020-04-27 16:41 | NUR ---
Report called to RN on for continuation of care. Nurse talked with patients sister and updated her earlier this afternoon and once again a bit ago to inform her of the room number in which he is going to.
--- NOTE | 2020-04-27 19:30 | NUR ---
Transferred from ICU via bed at approximately 1700; transferred to room safely. Vital signs taken and recorded. On MS, not on telemetry; no complains and signs of chest pain, crushing sensation and heaviness. Drowsy but rousable. On room air. On nothing per orem, pt high risk for aspiration; mouth swabs done, oral suction done as well. With gordon in place, output minimal- measured and recorded. With generalized edema and weeping noted; absorbent pads place. With L BKA- no dressing in place; with several wounds noted on his back and whole body- wound team aware. With 1 lumen PICC line at L upper arm in place; dressing C/D/I. On No code, pt kept comfortable. With signs of pain noted; PRN pain meds given as prescribed. Pt turned on his sides. No nausea, no vomiting and no abdominal pain noted. Pt's sister at bedside, update given; wants to be contacted if pt with any changes- Night RN Nehemiah informed, contact number given as well. To continue monitoring patient.
--- NOTE | 2020-04-28 07:39 | NUR ---
Assumed pt care at 1900. Drowsy but alert to self and answering yes/no questions upon interaction,c/o pain with movement medicated per EMAR. Pt has multiple wounds in different areas that are weeping Pads changed as needed. Au to DD with dark yellow urine w/sediment. Had a smear as well. PICC Line patent on LUE. Fall precautions in place.
[2020-04-28 08:27] VITALS: BP 85/33
--- NOTE | 2020-04-28 11:23 | NUR ---
Nutrition: Pt was noted for follow-up today. Chart reviewed and spoke with RN who states pt is comfort care measures. No further nutritional interventions are planned at this time unless otherwise consulted. RD will remain available.
--- NOTE | 2020-04-28 12:52 | NUR ---
ASSUMED PT CARE THIS AM. PT ALERT AND RESPONDS TO NAME AND SOME QUESTIONS, BUT DOES NOT ANSWER OTHER ORIENTATION QUESTIONS. PT HAS WEEPING ARM WOUNDS, LEG WOUND, AND SACRAL WOUND. WOUND ON BACK IS LARGE AND BLACK IN COLOR. PATIENT CLEANED UP, WOUNDS REDRESSED APPROPRIATE, AND NEW PADS PLACED UNDERNEATH WEEPING AREAS. PT BEING REPOSITIONED Q2H ALLOWED BY PATIENT. PAIN NOTED WITH MOVEMENT. BREATH SOUNDS ARE COARSE, AND HAS AUDIBLE GURGLES. SUCTIONING PATIENT MOUTH FREQUENTLY. PT HAD A SMALL BM TODAY THAT WENT INTO SACRAL WOUND. SACRAL WOUND WAS CLEANED AND REDRESSED. PT ENCOURAGED TO COUGH UP SPUTUM, HOWEVER, HAS A POOR COUGH. JACQUES IS IN PLACE, PATENT BUT WITH LITTLE OUTPUT. IV IS PATENT. SISTER OF PATIENT CALLED, PHONE NUMBER PASSED ALONG TO HOSPITALIST FOR AN UPDATE. FALL PRECAUTIONS ARE IN PLACE.
--- NOTE | 2020-04-28 14:00 | NUR ---
PT'S SISTER/DPOA AMY MARION CALLED THE UNIT THIS AFTERNOON LOOKING FOR UPDATE. CM SPOKE WITH HER AND SHE INDICATED THAT SHE HAD BEEN ABLE TO VISIT PT YESTERDAY AND THAT SHE HAD BEEN ABLE TO HAVE PT'S CHILDREN THAT THEY COULD CONTACT, SOME OTHER FAMILY, AND FRIENDS SPEAK TO HIM AND SAY GOODBYES. SHE INDICATED THAT SHE WASN'T ANTICIPATING VISITING AGAIN SHE DOESN'T WANT TO EXPOSE HERSELF OR FAMILY. SHE PROVIDED INFO ON EMD OF [facility] SERVICES PROVIDERS SHE WOULD LIKE THE [employer] [facility] [place] TO BE CONTACT AT AFTER PT'S PASSING. CM STILL AWAITING RESPOSE FROM PHYSICIAN TO WHETHER IT IS ANTICAPTED THAT PT IS EMINANT AND WILL REMAIN IN HOUSE OR IF PT WOULD BE APPROPRIATE TO TRANSFER ELSEWHERE. CM FOLLOWING REGARDING DC PLANNING.
[2020-04-28 15:36] VITALS: BP 66/40
--- NOTE | 2020-04-28 23:13 | NUR ---
Upon shift change report pt observed to be non responsive. pronounciation verified by Jennifer BOSWELL. PCP,family and all consults notified. Pt not a canditate for donor per MTN. Pt cleaned and placed in bag,security notified and waiting on home response.
== END 2020-04-28 23:25 | DRG 871 ==
LOC: ER 12:29 → EROBS 18:52 → ICU 04-23 00:46 → 4W 04-27 17:33
PROVIDERS: Internal Medicine; Nurse Practitioner Family; Physician Assistant; ADMIT Hospitalist; ATTEND Hospitalist
PROC: 30233N1 Transfusion of Nonautologous Red Blood Cells into Peripheral Vein, Percutaneous Approach (ICD-10-PCS; principal; 2020-04-22)
DX: A41.50 Gram-negative sepsis, unspecified (principal); R65.21 Severe sepsis with septic shock; E43 Unspecified severe protein-calorie malnutrition; G92 Toxic encephalopathy; N17.9 Acute kidney failure, unspecified; E87.1 Hypo-osmolality and hyponatremia; M46.28 Osteomyelitis of vertebra, sacral and sacrococcygeal region; D62 Acute posthemorrhagic anemia; I48.20 Chronic atrial fibrillation, unspecified; L03.116 Cellulitis of left lower limb; L03.115 Cellulitis of right lower limb; L97.319 Non-pressure chronic ulcer of right ankle with unspecified severity; I10 Essential (primary) hypertension; E03.9 Hypothyroidism, unspecified; E78.5 Hyperlipidemia, unspecified; E11.51 Type 2 diabetes mellitus with diabetic peripheral angiopathy without gangrene; M17.0 Bilateral primary osteoarthritis of knee; E11.42 Type 2 diabetes mellitus with diabetic polyneuropathy; E87.5 Hyperkalemia; F03.90 Unspecified dementia, unspecified severity, without behavioral disturbance, psychotic disturbance, mood disturbance, and anxiety; I95.9 Hypotension, unspecified; E86.1 Hypovolemia; E11.69 Type 2 diabetes mellitus with other specified complication; R58 Hemorrhage, not elsewhere classified; L89.90 Pressure ulcer of unspecified site, unspecified stage; R41.0 Disorientation, unspecified; L89.890 Pressure ulcer of other site, unstageable; L89.150 Pressure ulcer of sacral region, unstageable; S51.812A Laceration without foreign body of left forearm, initial encounter; S51.811A Laceration without foreign body of right forearm, initial encounter; X58.XXXA Exposure to other specified factors, initial encounter; Y93.89 Activity, other specified; Y92.89 Other specified places as the place of occurrence of the external cause; Z89.512 Acquired absence of left leg below knee; Y99.8 Other external cause status; Z79.01 Long term (current) use of anticoagulants; Z68.31 Body mass index [BMI] 31.0-31.9, adult
CPT/HCPCS: 10040; 10078; 27000